=== PATIENT | female | born 1945 | race Caucasian/White ===

== ENCOUNTER 2017-04-02 01:58 | Inpatient (IN) | payer MEDICARE, OTHER ==
[~2017-04-02] VITALS: Ht 162.6 cm; Wt 74.8 kg
[2017-04-02] MEDS ORDERED: SECONDARY IV SET 1 EA INFUS.SET MC ONE (02:15)
[2017-04-02] MEDS ORDERED: IV NS 0.9% 2,000 ML ONE (02:15)
[2017-04-02] MEDS ORDERED: IV SET PRIMARY 1 EA INFUS.SET MC ONE (02:15)
--- NOTE | 2017-04-02 02:16 | NUR ---
PT BIBA#60 PT STATES SHE HAS BEEN HVAING DIARRHEA AND SLIPPED IN HER OWN DIARRHEA AND IS C/O LEFT ELBOW PAIN, PT DENIES LOC. PT AOX4 RR EVEN AND UNLABORED. NO SOB NOTED. NAD NOTED. NO NVD AT THIS TIME. PT GOWNED AND PLACED ON MONITOR. WAITING FOR MD HYATT. NOTED PT WITH LEFT ARM ROM, C/O LEFT WRIST PAIN.
[2017-04-02] MEDS ORDERED: IV NS 0.9% 1,000 ML BAG IV ONE ×2 (02:30)
[2017-04-02 02:47] LABS: EOSINOPHILS % (AUTO) 0.2 % (0.0-6.0); HEMATOCRIT 36 % (33-45); HEMOGLOBIN 11.6 g/dL (11.5-14.8); LYMPHOCYTES # (AUTO) 0.3 /CMM (0.8-4.8); LYMPHOCYTES % (AUTO) 3.5 % (20.0-44.0); MEAN CORPUSCULAR HEMOGLOBIN 27 PG (26.0-33.0); MEAN CORPUSCULAR HGB CONC 32 g/dl (31.0-36.0); MEAN CORPUSCULAR VOLUME 84 fL (82-100); MONOCYTES # (AUTO) 0.4 /CMM (0.1-1.30); MONOCYTES % (AUTO) 4.5 % (2.0-12.0); NEUTROPHILS # (AUTO) 7.6 /CMM (1.8-8.9); NEUTROPHILS % (AUTO) 91.8 % (43.0-81.0); PLATELET COUNT (AUTO) 296 /CMM (150-450); RDW COEFFICIENT OF VARIATION 15.8 (11.5-15.0); RED BLOOD CELL COUNT(AUTO) 4.29 MIL/uL (4.0-5.2); WHITE BLOOD COUNT (AUTO) 8.2 K/uL (4.3-11.0)
[2017-04-02 03:02] LABS: ALBUMIN 2.8 g/dL (3.4-5.0); BILIRUBIN,DIRECT 0.1 mg/dL (0.0-0.2); BILIRUBIN,TOTAL 0.4 mg/dL (0.2-1.0); CALCIUM, SERUM 9.2 mg/dL (8.5-10.1); CREATININE 1.3 mg/dL (0.6-1.3); POTASSIUM 3.7 mmol/L (3.5-5.1); TOTAL PROTEIN, SERUM 6.8 g/dL (6.4-8.2)
--- NOTE | 2017-04-02 03:05 | NUR ---
URINE COLLECTED. CALLED LAB FOR COMPUTER CUSTOMER SUPPORT SPECIALIST. Addendum: 04/02/17 at 0311 by SEBASTIAN URINE COLLECTED VIA IN AND OUT CATH PER PT REQUEST, IMMACULATE SALES RECRUITING COORDINATOR AT BEDSIDE.
--- NOTE | 2017-04-02 03:07 | NUR ---
XRAY AT BEDSIDE
[2017-04-02 03:59] LABS: BILIRUBIN,URINE NEGATIVE (NEGATIVE); BLOOD, URINE NEGATIVE Ery/uL (NEGATIVE); COLOR,URINE YELLOW (YELLOW); KETONES,URINE NEGATIVE (NEGATIVE); LEUKOCYTE ESTERASE ,URINE NEGATIVE (NEGATIVE); NITRITE, URINE NEGATIVE (NEGATIVE); PROTEIN,URINE TRACE mg/dl (NEGATIVE); UGLUCOSE 3+ mg/dL (NEGATIVE); UROBILINOGEN,URINE 0.2 EU/dL (0.2)
[2017-04-02] MEDS ORDERED: ALPRAZOLAM 0.5 MG TABLET PO ONE (04:00)
[2017-04-02] MEDS ORDERED: ALPRAZOLAM 0.5 MG TABLET ONE (04:00)
[2017-04-02 04:14] LABS: APPEARANCE,URINE HAZY (CLEAR)
[2017-04-02 04:18] LABS: ADD URINE CULTURE NO; BACTERIA,URINE None seen /HPF (None Seen); SQUAMOUS EPITHELIAL CELL,UR Rare /HPF (None Seen); WBC,URINE 20-30 /HPF (0-3)
--- NOTE | 2017-04-02 04:30 | NUR ---
DR. RUIZ AT BEDSIDE SPEAKING TO PT REGARDING RESULTS/ POC
--- NOTE | 2017-04-02 05:29 | NUR ---
PT ASSIGNED TO MS BED 313-1, DR. RUIZ SPEAKING TO DR. DISLA REGARDING ADMISSION
--- NOTE | 2017-04-02 05:30 | NUR ---
PT CANNOT RECALL MEDICATION/ DOESNT NOT HAVE LIST OF MEDICATION
--- NOTE | 2017-04-02 05:38 | NUR ---
REPORT GIVEN TO MS CARLA HARRISON FOR SARAH
[2017-04-02] MEDS ORDERED: ONDANSETRON HCL/PF 4 MG/2 ML VIAL IVP PRN (06:00)
[2017-04-02] MEDS ORDERED: Z GUARD REMEDY 2 OZ OINT TP PRN (06:00)
[2017-04-02] MEDS ORDERED: MAG HYDROX/AL HYDROX/SIMETH 30 ML UDC PO PRN (06:00)
[2017-04-02] MEDS ORDERED: MAGNESIUM HYDROXIDE 30 ML UDC PO PRN (06:00)
[2017-04-02] MEDS ORDERED: ACETAMINOPHEN 325 MG TABLET PO PRN (06:00)
[2017-04-02] MEDS ORDERED: ZOLPIDEM TARTRATE 5 MG TABLET PO PRN (06:00)
[2017-04-02] MEDS ORDERED: DEXTROSE 50%-WATER 50 ML DISP.SYRIN IV PRN (06:00)
--- NOTE | 2017-04-02 06:00 | NUR ---
ms/rn notes Received patient from ER via relvi accompanied by rn and hospital staff. alert x2. able to verbalize needs. patient had diarrhea and s/p fall w/ dx of dehydration. xray result on left elbow, left wrist, left hip w/o fx.but noted left elbow scab. and multiple discoloration.in lower/upper extremity. skin intact. with redness on inner buttocks. no home medication reconciled awaiting for room mate to bring home medications. w/ hx of htn and dm. will endorse to am rn for wendy.
--- NOTE | 2017-04-02 06:06 | NUR ---
PT TRASNFERED TO MS BED 313-2 VIA WILIAM
[2017-04-02] MEDS: BLOOD SUGAR DIAGNOSTIC 1 EACH STRIP IN SCH ×4 (07:02→21:31)
[2017-04-02 08:00] VITALS: BP_SYST 134; BP_SYST 154; BP_DIAS 69; BP_DIAS 91
--- NOTE | 2017-04-02 08:00 | NUR ---
MS RN OPENING NOTES RECEIVED REPORT WITH PATIENT RESTING IN BED. PATIENT IS A/OX2. NO S/S OF DISTRESS NOTED. NO SOB NOTED. IV ON RIGHT HAND IS PATENT AND INTACT. CALL LIGHT IS WITHIN REACH. BED IS IN LOW LOCKED POSITION. WILL CONTINUE TO MONITOR THROUGHOUT SHIFT.
[2017-04-02] MEDS: PANTOPRAZOLE 40 MG VIAL IV SCH (09:11)
[2017-04-02] MEDS ORDERED: DIPH1TAB PO (11:36)
[2017-04-02] MEDS ORDERED: HYDR25TA4 PO (11:36)
[2017-04-02] MEDS ORDERED: ARIP2TAB11 PO (11:36)
[2017-04-02] MEDS ORDERED: ATOR40TA PO (11:36)
[2017-04-02] MEDS ORDERED: LEVO75TA7 PO (11:36)
[2017-04-02] MEDS ORDERED: ALBU8.5H2 INH (11:36)
[2017-04-02] MEDS ORDERED: ALPR0.25 PO (11:36)
[2017-04-02] MEDS ORDERED: TEMA15CA PO (11:36)
[2017-04-02] MEDS ORDERED: CODE118S2 PO (11:36)
[2017-04-02] MEDS ORDERED: BUTA-247 PO (11:36)
--- NOTE | 2017-04-02 12:00 | NUR ---
MS RN NOTES PATIENT STATED THAT HER NEIGHBOR, SADE JULIEN HAS ACCESS TO HER APARTMENT. PATIENT NOTIFIED ME OF NUMBER . NEIGHBOR WILL BRING ALL MEDICATIONS.
[2017-04-02] MEDS: INSULIN REGULAR, HUMAN 100 UNIT/ML 3 ML VIAL SQ PRN (13:10)
--- NOTE | 2017-04-02 14:00 | NUR ---
MS RN NOTES MEDICATIONS HAVE BEEN RECONCILED. MD MADE AWARE. WAITING FOR REVIEW.
[2017-04-02] MEDS ORDERED: ISOS30TA6 PO (15:09)
[2017-04-02] MEDS ORDERED: BUDE3CAP8 PO (15:09)
[2017-04-02] MEDS ORDERED: CYCL-343 PO (15:09)
[2017-04-02] MEDS ORDERED: MESA1.2T PO (15:09)
[2017-04-02] MEDS ORDERED: GABA-536 PO (15:09)
[2017-04-02] MEDS ORDERED: MONT10TA22 PO (15:09)
[2017-04-02] MEDS ORDERED: DONE5TAB34 PO (15:09)
[2017-04-02] MEDS ORDERED: INSU3INS6 SQ (15:09)
[2017-04-02] MEDS ORDERED: VENL75TA4 PO (15:09)
[2017-04-02] MEDS ORDERED: AMLO10TA2 PO (15:09)
[2017-04-02] MEDS ORDERED: INSU100I14 SQ (15:09)
[2017-04-02] MEDS ORDERED: SERT100T12 PO (15:09)
[2017-04-02] MEDS ORDERED: MEMA10TA PO (15:09)
[2017-04-02] MEDS: ALPRAZOLAM 0.25 MG TABLET PO PRN (15:19)
[2017-04-02 16:00] VITALS: BP 130/79
[2017-04-02] MEDS ORDERED: IV SET PRIMARY PUMP SET 1 EA INFUS.SET MC ONE (18:51)
[2017-04-02] MEDS ORDERED: Z GUARD REMEDY 4 OZ OINT TP PRN (19:00)
[2017-04-02] MEDS: IV NS 0.9% 1,000 ML IV PRN (19:02)
--- NOTE | 2017-04-02 19:28 | NUR ---
MS RN NOTES PATIENT IN BED RESTING. PATIENT IS A/OX2. IV IS PATENT AND INTACT. PATIENT DENIES PAIN AT THIS TIME. NO ACUTE DISTRESS NOTED. NO SOB NOTED. BED IS IN LOW LOCKED POSITION. CALL LIGHT WITHIN REACH. WILL ENDORSE CARE TO PM SHIFT.
--- NOTE | 2017-04-02 19:30 | NUR ---
MS RN NOTE RECEIVED PATIENT FROM DAY SHIFT, PATIENT IS ALERT AND ORIENTEDX3, DENIES RESPIRATORY DISTRESS AND PAIN AT THIS TIME. IV ON RIGHT HAND IS PATENT AND INTACT, NS IS RUNNING. SRX2, BED IN LOW POSITION, CALL LIGHT WITHIN REACH, WILL CONTINUE TO MONITOR PATIENT.
[2017-04-02 20:00] VITALS: BP 146/79
[2017-04-02] MEDS ORDERED: CODEINE/PROMETHAZINE HCL 5 ML UDC PO PRN (20:00)
[2017-04-02] MEDS ORDERED: DIPHENOXYLATE HCL/ATROP SULF 1 UDTAB TABLET PO PRN (20:00)
[2017-04-02] MEDS ORDERED: ATORVASTATIN 40 MG TABLET ONE (20:24)
[2017-04-02] MEDS ORDERED: MONTELUKAST SODIUM (10MG) 10 MG TABLET ONE (20:24)
[2017-04-02] MEDS: BUTALB/APAP/CAFFEINE 1 EACH TABLET PO SCH (20:57)
[2017-04-02] MEDS ORDERED: TEMAZEPAM 15 MG CAPSULE ONE (21:09)
[2017-04-02] MEDS: *INSULIN REGULAR(HUMULIN R)HUM 100 UNIT/ML VIAL SQ PRN (21:32)
[2017-04-02] MEDS: MONTELUKAST SODIUM (10MG) 10 MG TABLET PO SCH (21:32)
[2017-04-02] MEDS: ATORVASTATIN 40 MG TABLET PO SCH (21:32)
[2017-04-02] MEDS: TEMAZEPAM 15 MG CAPSULE PO SCH (21:32)
[2017-04-03] MEDS: BUTALB/APAP/CAFFEINE 1 EACH TABLET PO SCH ×2 (01:00→05:00)
[2017-04-03] MEDS: ALPRAZOLAM 0.25 MG TABLET PO PRN ×3 (01:11→17:41)
[2017-04-03] MEDS: HYDROCODONE/APAP 5/325MG 1 EACH TABLET PO PRN ×2 (04:34→23:09)
[2017-04-03] MEDS: IV NS 0.9% 1,000 ML IV PRN ×2 (04:35→21:50)
--- NOTE | 2017-04-03 04:37 | NUR ---
MS RN NOTE PATIENT COMPLAINS OF BACK PAIN 05/22, NORCO 5-325MG PO GIVEN. WILL MONITOR EFFECTIVENESS.
--- NOTE | 2017-04-03 05:17 | NUR ---
MS RN NOTE NON-ADMINISTERED FIORICETX3 TIMES PO SCHEDULED SINCE IT IS NOT AVAILABLE FORM IN [facility]. WILL ENDORSE TO DAY SHIFT TO F/U WITH PHARMACY. PATIENT DID NOT COMPLAIN OF HEADACHE.
[2017-04-03] MEDS: BLOOD SUGAR DIAGNOSTIC 1 EACH STRIP IN SCH ×4 (06:04→21:53)
[2017-04-03] MEDS: INSULIN REGULAR, HUMAN 100 UNIT/ML 3 ML VIAL SQ PRN ×3 (06:04→17:41)
--- NOTE | 2017-04-03 06:46 | NUR ---
MS RN NOTE PATIENT IS RESTING IN BED COMFORTABLY, DENIES RESPIRATORY DISTRESS AND PAIN AT THIS TIME. IV ON RIGHT HAND IS PATENT AND INTACT, FLUID IS RUNNING. WILL ENDORSE TO DAY SHIFT NURSE FOR SARAH.
[2017-04-03 07:08] LABS: BASOPHILS % (AUTO) 0.2 % (0.0-2.0); EOSINOPHILS # (AUTO) 0.1 /CMM (0.0-0.7); EOSINOPHILS % (AUTO) 1.8 % (0.0-6.0); HEMATOCRIT 31 % (33-45); LYMPHOCYTES # (AUTO) 1.5 /CMM (0.8-4.8); LYMPHOCYTES % (AUTO) 27.4 % (20.0-44.0); MEAN CORPUSCULAR HEMOGLOBIN 27 PG (26.0-33.0); MEAN CORPUSCULAR HGB CONC 32 g/dl (31.0-36.0); MEAN CORPUSCULAR VOLUME 84 fL (82-100); MONOCYTES # (AUTO) 0.7 /CMM (0.1-1.30); MONOCYTES % (AUTO) 13.7 % (2.0-12.0); NEUTROPHILS # (AUTO) 3.1 /CMM (1.8-8.9); NEUTROPHILS % (AUTO) 56.9 % (43.0-81.0); PLATELET COUNT (AUTO) 229 /CMM (150-450); RDW COEFFICIENT OF VARIATION 15.6 (11.5-15.0); RED BLOOD CELL COUNT(AUTO) 3.68 MIL/uL (4.0-5.2); WHITE BLOOD COUNT (AUTO) 5.4 K/uL (4.3-11.0)
[2017-04-03 07:29] LABS: ALBUMIN 2.4 g/dL (3.4-5.0); BILIRUBIN,TOTAL 0.3 mg/dL (0.2-1.0); CALCIUM, SERUM 8.2 mg/dL (8.5-10.1); CREATININE 0.7 mg/dL (0.6-1.3); PHOSPHORUS 2.2 mg/dL (2.5-4.9); TOTAL PROTEIN, SERUM 5.7 g/dL (6.4-8.2)
[2017-04-03 07:33] LABS: THYROID STIMULATING HORMONE 1.667 uIU/mL (0.358-3.74)
--- NOTE | 2017-04-03 07:50 | NUR ---
MS RN OPENING NOTE PATIENT IS ALERT AND ORIENTED x4. NO PAIN AT THIS TIME. NO SOB OR DISTRESS NOTED. CALL LIGHT WITHIN REACH. SAFETY MEASURES IMPLEMENTED. ABLE TO COMMUNICATE NEEDS. IV INTACT AND PATENT NO REDNESS OR SWELLING NOTED. WILL CONTINUE TO MONITOR
[2017-04-03 07:52] LABS: MAGNESIUM 1.2 mg/dL (1.8-2.4); POTASSIUM 2.8 mmol/L (3.5-5.1)
--- NOTE | 2017-04-03 07:53 | NUR ---
MS RN NOTE RECEIVED CALL FROM LAB. PATIENT HAS TWO CRITICAL LABS, POTASSIUM-2.8 AND MAGNESIUM-1.2 . MADE PHARMACY AWARE. WILL MAKE MD AWARE WELL.
[2017-04-03 08:00] VITALS: BP 136/74
[2017-04-03] MEDS ORDERED: SECONDARY IV SET 1 EA INFUS.SET MC ONE (09:14)
[2017-04-03] MEDS: PANTOPRAZOLE 40 MG VIAL IV SCH (09:23)
[2017-04-03] MEDS: POTASSIUM CHLORIDE 20 MEQ TAB.PRT.SR PO SCH ×3 (09:23→12:09)
[2017-04-03] MEDS: DONEPEZIL 5 MG TABLET PO SCH (09:24)
[2017-04-03] MEDS: VENLAFAXINE 37.5 MG TABLET PO SCH (09:24)
[2017-04-03] MEDS: LEVOTHYROXINE SODIUM 75 MCG TABLET PO SCH (09:24)
[2017-04-03] MEDS: GABAPENTIN 400 MG CAPSULE PO SCH ×3 (09:24→17:40)
[2017-04-03] MEDS: AMLODIPINE BESYLATE 10 MG TABLET PO SCH (09:25)
[2017-04-03] MEDS: ARIPIPRAZOLE 2 MG TABLET PO SCH (09:30)
[2017-04-03] MEDS: BUDESONIDE 3 MG CAP.SR.24H PO SCH (09:30)
[2017-04-03] MEDS: Magnesium 1GM/D5W 100ML PREMIX 100 ML IV SCH ×4 (09:30→14:25)
[2017-04-03] MEDS ORDERED: BUTALB/APAP/CAFFEINE 1 EACH TABLET PO PRN (09:39)
[2017-04-03] MEDS ORDERED: POTASSIUM CHLORIDE 20 MEQ TAB.PRT.SR PO ONE ×2 (10:00→14:00)
[2017-04-03] MEDS ORDERED: POTASSIUM CL. PREMIX PERIPHER. 50 ML IV SCH (10:00)
[2017-04-03] MEDS ORDERED: Magnesium 1GM/D5W 100ML PREMIX 100 ML IV SCH (10:00)
--- NOTE | 2017-04-03 10:02 | NUR ---
MS RN NOTE RECEIVED CALL FROM PHARMACY FOR ORDERS FROM MD. CLARIFIED MD ORDERS WITH DR. FRANK, PATIENT WILL RECEIVE ANOTHER POTASSIUM PILL PO AND 4 MAGNESIUM BAGS. MADE PATIENT AWARE AND MADE CHARGE NURSE AWARE
[2017-04-03] MEDS ORDERED: ALBUTEROL FS 2.5 MG/3 ML VIAL.NEB NEB PRN (13:30)
--- NOTE | 2017-04-03 13:52 | NUR ---
MS RN NOTE GAVE REPORT TO LÓPEZ IN REGARDS TO PATIENT. PATIENT IS ALERT AND ORIENTED x4. NO PAIN AT THIS TIME. NO SOB OR DISTRESS NOTED. CALL LIGHT WITHIN REACH AT ALL TINES. SAFETY MEASURES IMPLEMENTED.
--- NOTE | 2017-04-03 13:55 | NUR ---
RECEIVED PT IN STABLE CONDITION FROM AM NURSE, NO SOB OR DISTRESS NOTED, NO PAIN OR DISCOMFORT, WILL MONITOR.
[2017-04-03 16:00] VITALS: BP 120/71
[2017-04-03] MEDS ORDERED: K PHOS NEUTRAL 250 MG TABLET PO ONE (18:00)
--- NOTE | 2017-04-03 19:17 | NUR ---
RN CLOSING NOTES ALL NEEDS PROVIDED, ATTENDED AND ANTICIPATED. KEPT PATIENT CLEAN AND COMFORTABLE IN BED, CALL LIGHT WITHIN PATIENT REACH, WILL CONTINUE TO MONITOR ACCORDINGLY. ENDORSED TO NEXT SHIFT RN TO CONTINUE CARE.
--- NOTE | 2017-04-03 19:23 | NUR ---
RN NOTES BLOOD GLUCOSE 150 AT 1730. GIVEN 2 UNITS
--- NOTE | 2017-04-03 19:35 | NUR ---
MS RN NOTE RECEIVED PATIENT FROM DAY SHIFT, PATIENT IS ALERT AND ORIENTEDX3, DENIES RESPIRATORY DISTRESS OR PAIN AT THIS TIME, LOOKS COMFORTABLE. IV ON RIGHT HAND IS PATENT AND INTACT, NS IS RUNNING. SRX2, BED IN LOW POSITION, CALL LIGHT WITHIN REACH, WILL CONTINUE TO MONITOR PATIENT.
[2017-04-03 20:35] VITALS: BP 143/66
[2017-04-03] MEDS: MONTELUKAST SODIUM (10MG) 10 MG TABLET PO SCH (21:49)
[2017-04-03] MEDS: TEMAZEPAM 15 MG CAPSULE PO SCH (21:49)
[2017-04-03] MEDS: ATORVASTATIN 40 MG TABLET PO SCH (21:50)
[2017-04-03] MEDS: *INSULIN REGULAR(HUMULIN R)HUM 100 UNIT/ML VIAL SQ PRN (21:57)
[2017-04-04] MEDS: BLOOD SUGAR DIAGNOSTIC 1 EACH STRIP IN SCH ×4 (05:49→21:39)
[2017-04-04] MEDS: INSULIN REGULAR, HUMAN 100 UNIT/ML 3 ML VIAL SQ PRN ×3 (05:50→17:25)
--- NOTE | 2017-04-04 06:50 | NUR ---
MS RN NOTE PATIENT IS RESTING IN BED COMFORTABLY, NO ACUTE DISTRESS PRESENT DURING THE GRANULIZING MACHINE OPERATOR. ALL DUE MEDS GIVEN, MORNING CARE RENDERED. IV ON RIGHT HAND IS PATENT AND INTACT, FLUID IS RUNNING. WILL ENDORSE TO DAY SHIFT FOR SARAH.
[2017-04-04 06:55] LABS: BASOPHILS % (AUTO) 0.4 % (0.0-2.0); EOSINOPHILS # (AUTO) 0.1 /CMM (0.0-0.7); EOSINOPHILS % (AUTO) 1.7 % (0.0-6.0); HEMATOCRIT 32 % (33-45); HEMOGLOBIN 10.4 g/dL (11.5-14.8); LYMPHOCYTES # (AUTO) 1.8 /CMM (0.8-4.8); LYMPHOCYTES % (AUTO) 28.5 % (20.0-44.0); MEAN CORPUSCULAR HEMOGLOBIN 27 PG (26.0-33.0); MEAN CORPUSCULAR HGB CONC 33 g/dl (31.0-36.0); MEAN CORPUSCULAR VOLUME 84 fL (82-100); MONOCYTES # (AUTO) 0.8 /CMM (0.1-1.30); MONOCYTES % (AUTO) 13.6 % (2.0-12.0); NEUTROPHILS # (AUTO) 3.5 /CMM (1.8-8.9); NEUTROPHILS % (AUTO) 55.8 % (43.0-81.0); PLATELET COUNT (AUTO) 239 /CMM (150-450); RDW COEFFICIENT OF VARIATION 16.1 (11.5-15.0); RED BLOOD CELL COUNT(AUTO) 3.79 MIL/uL (4.0-5.2); WHITE BLOOD COUNT (AUTO) 6.2 K/uL (4.3-11.0)
[2017-04-04 07:14] LABS: CALCIUM, SERUM 8.3 mg/dL (8.5-10.1); CREATININE 0.7 mg/dL (0.6-1.3); MAGNESIUM 1.9 mg/dL (1.8-2.4); PHOSPHORUS 2.6 mg/dL (2.5-4.9); POTASSIUM 3.8 mmol/L (3.5-5.1)
--- NOTE | 2017-04-04 07:38 | NUR ---
RN MS OPENING NOTES RECEIVED PATIENT IN BED, AWAKE, HEAD OF BED ELEVATED. PATIENT ALERT AND ORIENTED X 4.NO SOB OR DISTRESS NOTED, IV IS INTACT AND PATENT. PATIENT'S CALL LIGHT IS WITHIN PATIENT REACH. WILL CONTINUE TO MONITOR ACCORDINGLY.
[2017-04-04 08:00] VITALS: BP 131/77
[2017-04-04] MEDS: PANTOPRAZOLE 40 MG VIAL IV SCH (08:39)
[2017-04-04] MEDS: ARIPIPRAZOLE 2 MG TABLET PO SCH (08:39)
[2017-04-04] MEDS: DONEPEZIL 5 MG TABLET PO SCH (08:40)
[2017-04-04] MEDS: GABAPENTIN 400 MG CAPSULE PO SCH ×3 (08:40→17:25)
[2017-04-04] MEDS: VENLAFAXINE 37.5 MG TABLET PO SCH (08:41)
[2017-04-04] MEDS: BUDESONIDE 3 MG CAP.SR.24H PO SCH (08:41)
[2017-04-04] MEDS: AMLODIPINE BESYLATE 10 MG TABLET PO SCH (08:41)
[2017-04-04] MEDS: LEVOTHYROXINE SODIUM 75 MCG TABLET PO SCH (08:41)
[2017-04-04] MEDS: ALPRAZOLAM 0.25 MG TABLET PO PRN (09:52)
--- NOTE | 2017-04-04 10:00 | NUR ---
RN NOTES PATIENT REQUESTED XANAX FOR ANXIETY.
--- NOTE | 2017-04-04 11:18 | NUR ---
Social service consult requested by Med/Surg NGHIA Cote for emotional support. Per H&P report by Dr. Rizzo, patient is a 71-year old female with a PMHx of HTN, hyperlipidemia, GERD, irritable bowel syndrome, rheumatoid arthritis, fibromyalgia, diabetes, and anemia. Patient reports feeling very overwhelmed and emotional. Patient was [facility] to [facility] for dehydration, falling, and gastroenteritis. SW met with patient at bedside. Patient was alert and oriented x4. Her appearance was disheveled. She presented with an expansive mood and her affect was labile. She denied any substance abuse. She reported a history of depression and anxiety. Patient report feeling overwhelmed with her upcoming situation. Patient reported that she forgot that she would be going to a SNF (i.e. [facility]). However, she stated now remembering that it was discussed. Patient requested information related to the SNF (e.g. address) to help calm her down. Patient also stated she had anxiety because she didn't know what possessions she had with her in the hospital. Patient requested to be updated on the possessions she had. She reported that she did not have any pants because they were cut off. She requested pants. Patient reported that the requested assistance would ease her anxiety. SW agreed to provide patient information related to SNF and explore if pants are available for her. Patient was agreeable with discharge plan to [facility] [[id number]; [place], [place] [id number]].
--- NOTE | 2017-04-04 11:30 | NUR ---
RN NOTES PATIENT'S BLOOD SUGAR 216 AT 1130, 4 UNITS OF REGULAR INSULIN GIVEN
--- NOTE | 2017-04-04 15:39 | NUR ---
RN NOTES PATIENT COMPLAINING OF BACK PAIN. GIVEN TYLENOL.
[2017-04-04 16:00] VITALS: BP 123/65
--- NOTE | 2017-04-04 17:36 | NUR ---
RN NOTES PATIENT IS WATCHING TV IN STABLE CONDITION
--- NOTE | 2017-04-04 19:05 | NUR ---
MS RN OPENING NOTES: RECEIVED PT AWAKE, A/OX3, LAYING IN BED. NO SIGNS OR SYMPTOMS OF DISTRESS AT THIS TIME. PT HAS IV ON R HAND #206 AND IS PATENT AND INTACT. FLUIDS ARE INFUSING AT IV 0.9% NS 1,000ML AT 75ML/HR. CALL LIGHT WITHIN PT'S REACH. BED KEPT IN LOCKED, LOWEST POSITION, AND SIDE RAILS X 2 UP. PT KEPT CLEAN, DRY, AND COMFORTABLE. WILL CONTINUE TO MONITOR PT.
[2017-04-04 20:00] VITALS: BP 125/68
--- NOTE | 2017-04-04 20:19 | NUR ---
MS RN NOTES: PT REPORTED 2 EPISODES OF DIARRHEA FOR TODAY. PT REQUESTED LOMOTIL PO. WILL CONTINUE TO MONITOR PT FOR DIARRHEA.
[2017-04-04] MEDS: ATORVASTATIN 40 MG TABLET PO SCH (21:20)
[2017-04-04] MEDS: MONTELUKAST SODIUM (10MG) 10 MG TABLET PO SCH (21:20)
[2017-04-04] MEDS: TEMAZEPAM 15 MG CAPSULE PO SCH (21:20)
--- NOTE | 2017-04-04 21:22 | NUR ---
MS RN NOTES: BLOOD SUGAR WAS 184. PT RECEIVED 3 UNITS OF REGULAR INSULIN. WILL CONTINUE TO MONITOR PT.
[2017-04-04] MEDS: *INSULIN REGULAR(HUMULIN R)HUM 100 UNIT/ML VIAL SQ PRN (21:26)
[2017-04-04] MEDS: IV NS 0.9% 1,000 ML IV PRN (21:34)
[2017-04-05] MEDS: BLOOD SUGAR DIAGNOSTIC 1 EACH STRIP IN SCH ×2 (06:24→11:59)
--- NOTE | 2017-04-05 06:25 | NUR ---
MS RN NOTES: BLOOD SUGAR WAS 160. PT RECEIVED 2 UNITS OF REGULAR INSULIN. WILL CONTINUE TO MONITOR PT.
[2017-04-05] MEDS: LEVOTHYROXINE SODIUM 75 MCG TABLET PO SCH ×2 (06:30→08:25)
[2017-04-05] MEDS: INSULIN REGULAR, HUMAN 100 UNIT/ML 3 ML VIAL SQ PRN ×2 (06:33→12:01)
--- NOTE | 2017-04-05 07:15 | NUR ---
MS RN NOTES: ALL NEEDS WERE ATTENDED FOR. PT IS AWAKE LAYING DOWN IN BED AND IS ASLEEP IN BED. PT IS A/O X4. PT KEPT CLEAN, DRY, AND COMFORTABLE. CALL LIGHT WITHIN PT'S REACH. BED KEPT IN LOCKED, LOWEST POSITION, AND SIDE RAILS X 2 UP. PT HAS IV ON R HAND #20G AND IS PATENT AND INTACT. FLUIDS ARE INFUSING AT NS 0.9% AT 75ML/HR. ENDORSED TO AM NURSE FOR CONTINUITY OF CARE.
[2017-04-05 08:00] VITALS: BP 138/78
[2017-04-05 08:14] VITALS: BP 138/78
[2017-04-05] MEDS: PANTOPRAZOLE 40 MG VIAL IV SCH (08:24)
[2017-04-05 08:25] VITALS: BP 138/78
[2017-04-05] MEDS: AMLODIPINE BESYLATE 10 MG TABLET PO SCH (08:25)
[2017-04-05] MEDS: GABAPENTIN 400 MG CAPSULE PO SCH ×2 (08:25→12:01)
[2017-04-05] MEDS: DONEPEZIL 5 MG TABLET PO SCH (08:25)
[2017-04-05] MEDS: VENLAFAXINE 37.5 MG TABLET PO SCH (08:25)
[2017-04-05] MEDS: ARIPIPRAZOLE 2 MG TABLET PO SCH (08:28)
[2017-04-05] MEDS: BUDESONIDE 3 MG CAP.SR.24H PO SCH (08:28)
--- NOTE | 2017-04-05 08:40 | NUR ---
RN Notes On bed awake, alert and oriented. Not in any form of distress. Denies headache or dizziness. On RA saturating at 97% with no SOB. With occasional cough. Both lungs clear to auscultate. Assisted to the commode tolerating well. resting fairly.
[2017-04-05] MEDS: ALPRAZOLAM 0.25 MG TABLET PO PRN (10:29)
--- NOTE | 2017-04-05 14:00 | NUR ---
RN Notes Discharge instruction given on home meds and follow up with primary care physician verbalized understanding.discharge paper properly signed. Belongings were accounted with patient and claimed no item is missing. Final body check done with picture documentation. No break in the skin noted. Redness on under breast folds resolved. Sacral excoriation healed.
--- NOTE | 2017-04-05 14:10 | NUR ---
RN Notes Left hospital per selma via [facility]. Iv access were removed. home medications handed to patient. Left hospital in stable condition. report given to nurse Escalante of [facility].
== END 2017-04-05 14:00 | DRG 392 ==
LOC: EDBD 01:59 → ER 01:59 → MED 05:43
PROVIDERS: ADMIT Internal Medicine; ATTEND Internal Medicine
DX: A08.4 Viral intestinal infection, unspecified (principal); E44.0 Moderate protein-calorie malnutrition; F13.20 Sedative, hypnotic or anxiolytic dependence, uncomplicated; I10 Essential (primary) hypertension; E78.5 Hyperlipidemia, unspecified; E11.9 Type 2 diabetes mellitus without complications; E86.0 Dehydration; M79.7 Fibromyalgia; M06.9 Rheumatoid arthritis, unspecified; K21.9 Gastro-esophageal reflux disease without esophagitis; J42 Unspecified chronic bronchitis; D63.8 Anemia in other chronic diseases classified elsewhere; W01.0XXA Fall on same level from slipping, tripping and stumbling without subsequent striking against object, initial encounter; Y92.009 Unspecified place in unspecified non-institutional (private) residence as the place of occurrence of the external cause; Z79.4 Long term (current) use of insulin; F32.9 Major depressive disorder, single episode, unspecified; Z68.28 Body mass index [BMI] 28.0-28.9, adult; K52.839 Microscopic colitis, unspecified; I70.90 Unspecified atherosclerosis
CPT/HCPCS: 36415; 71010-TC; 73080-TC; 73110; 73510-TC; 80048-TC; 80053-TC; 80061-TC; 80076-TC; 81000-TC; 82962-TC; 83735-TC; 84100-TC; 84443-TC; 84484-TC; 85025-TC; 87081-TC; 97001-TC; 97116-TC; 97530-TC; A4606; C9113; J1815; J3475; J7030; Z7610

== ENCOUNTER 2018-01-19 17:11 | Inpatient (IN) | payer MEDICARE, OTHER ==
[~2018-01-19] VITALS: Ht 172.7 cm; Wt 74.8 kg
[~2018-01-19 17:11] MED LIST: ALBU8.5H8 INH; ALPR0.25 PO; AMLO10TA2 PO; ARIP2TAB11 PO; ATOR40TA PO; BUDE3CAP8 PO; BUTA-247 PO; CODE118S2 PO; CYCL10TA9 PO; DIPH1TAB PO; DONE5TAB34 PO; GABA-536 PO; HYDR25TA4 PO; INSU100I14 SQ; INSU3INS6 SQ; ISOS30TA6 PO; LEVO75TA7 PO; MEMA10TA PO; MESA1.2T PO; MONT10TA22 PO; SERT100T12 PO; TEMA15CA PO; VENL75TA4 PO
--- NOTE | 2018-01-19 17:40 | NUR ---
BIB RA C/O ALOC AND POSSIBLE OVERDOSE ON MEDICATION. SEEN BY MEDICAL TECHNOLOGIST FOR EVAL. PT AAXO2. VSS. UNABLE TO GIVE INFO. SAFETY AND COMFORT MEASURES PROVIDED. WILL MONITOR.
[2018-01-19 18:00] LABS: BASOPHILS # (AUTO) 0.1 /CMM (0.0-0.2); BASOPHILS % (AUTO) 1.2 % (0.0-2.0); EOSINOPHILS # (AUTO) 0.2 /CMM (0.0-0.7); EOSINOPHILS % (AUTO) 1.7 % (0.0-6.0); HEMATOCRIT 43 % (33-45); HEMOGLOBIN 15.1 g/dL (11.5-14.8); LYMPHOCYTES # (AUTO) 2.4 /CMM (0.8-4.8); LYMPHOCYTES % (AUTO) 20.1 % (20.0-44.0); MEAN CORPUSCULAR HEMOGLOBIN 31 PG (26.0-33.0); MEAN CORPUSCULAR HGB CONC 35 g/dl (31.0-36.0); MEAN CORPUSCULAR VOLUME 89 fL (82-100); MONOCYTES # (AUTO) 0.7 /CMM (0.1-1.30); MONOCYTES % (AUTO) 6.1 % (2.0-12.0); NEUTROPHILS # (AUTO) 8.6 /CMM (1.8-8.9); NEUTROPHILS % (AUTO) 70.9 % (43.0-81.0); PLATELET COUNT (AUTO) 236 /CMM (150-450); RDW COEFFICIENT OF VARIATION 14.9 (11.5-15.0); RED BLOOD CELL COUNT(AUTO) 4.89 MIL/uL (4.0-5.2)
[2018-01-19] MEDS ORDERED: OMEP20CA10 PO (18:12)
[2018-01-19] MEDS ORDERED: ERGO500040 PO (18:12)
[2018-01-19] MEDS ORDERED: TRAM50TA2 PO (18:12)
[2018-01-19] MEDS ORDERED: FERR325T23 PO (18:12)
[2018-01-19] MEDS ORDERED: GLYB5TAB7 PO (18:12)
[2018-01-19] MEDS ORDERED: BUPR-96 PO (18:12)
[2018-01-19] MEDS ORDERED: ONDA4TAB8 PO (18:12)
[2018-01-19] MEDS ORDERED: ASPI-1169 PO (18:12)
[2018-01-19] MEDS ORDERED: HYDR-552 PO (18:12)
[2018-01-19] MEDS ORDERED: METO25TA3 PO (18:12)
--- NOTE | 2018-01-19 18:20 | NUR ---
IV ACCESS STARTED. BLOOD DRAWN FOR LABS.
--- NOTE | 2018-01-19 18:30 | NUR ---
URINE SAMPLE OBTAINED, SENT.
[2018-01-19 18:37] LABS: ALANINE AMINOTRANSFERASE 22 U/L (12-78); ALBUMIN 3.4 g/dL (3.4-5.0); ALCOHOL, BLOOD < 3 mg/dL (0-0); ALKALINE PHOSPHATASE 109 U/L (46-116); ASPARTATE AMINOTRANSFERASE 24 U/L (15-37); BILIRUBIN,DIRECT 0.1 mg/dL (0.0-0.2); BILIRUBIN,TOTAL 0.3 mg/dL (0.2-1.0); CALCIUM, SERUM 9.9 mg/dL (8.5-10.1); CARBON DIOXIDE 25 mmol/L (21-32); CHLORIDE 100 mmol/L (98-107); CREATININE 1.1 mg/dL (0.6-1.3); POTASSIUM 3.5 mmol/L (3.5-5.1); SALICYLATE 3.2 mg/dL (2.8-20.0); SODIUM SERUM 136 mmol/L (136-145); TOTAL PROTEIN, SERUM 7.6 g/dL (6.4-8.2); UREA NITROGEN, BLOOD 17 mg/dL (7-18)
[2018-01-19 18:39] LABS: ACETAMINOPHEN < 2 ug/ml (10-30)
[2018-01-19 18:40] LABS: GLUCOSE 363 mg/dL (74-106)
[2018-01-19 19:44] LABS: APPEARANCE,URINE CLEAR (CLEAR); BILIRUBIN,URINE NEGATIVE (NEGATIVE); BLOOD, URINE NEGATIVE Ery/uL (NEGATIVE); COLOR,URINE YELLOW (YELLOW); KETONES,URINE NEGATIVE (NEGATIVE); LEUKOCYTE ESTERASE ,URINE NEGATIVE (NEGATIVE); NITRITE, URINE NEGATIVE (NEGATIVE); PROTEIN,URINE NEGATIVE (NEGATIVE); UGLUCOSE 3+ mg/dL (NEGATIVE); UROBILINOGEN,URINE 0.2 EU/dL (0.2)
[2018-01-19 20:32] LABS: BACTERIA,URINE Few /HPF (None Seen); RBC,URINE 0-2 /HPF (0-2); SQUAMOUS EPITHELIAL CELL,UR Few /HPF (None Seen); WBC,URINE 0-2 /HPF (0-3)
--- NOTE | 2018-01-19 21:44 | NUR ---
CALLED JERAMIE, NURSE ON EMERGENCY PHONE LIST FOR PT, NO ANSWER, LEFT MESSAGE ON VOICEMAIL
--- NOTE | 2018-01-19 21:52 | NUR ---
Idalia Myers; pts. caregiver [phone]
--- NOTE | 2018-01-20 00:22 | NUR ---
CALLED HALIMA FOR PSYCH EVAL. LEFT MESSAGE. [phone]
--- NOTE | 2018-01-20 00:35 | NUR ---
HEIKE BEST AT FOR EVAL.
--- NOTE | 2018-01-20 01:31 | NUR ---
REPORT GIVEN TO ZACH AGUIRRE FOR GPS 213.
[2018-01-20] MEDS ORDERED: MAG HYDROX/AL HYDROX/SIMETH 30 ML UDC PO PRN (02:00)
[2018-01-20] MEDS ORDERED: ACETAMINOPHEN 325 MG TABLET PO PRN (02:00)
[2018-01-20] MEDS ORDERED: MAGNESIUM HYDROXIDE 30 ML UDC PO PRN (02:00)
--- NOTE | 2018-01-20 03:26 | NUR ---
ADMITTED FROM [facility] BROUGHT IN BY EMS WITH HER CAREGIVER ON 5150 HOLD FOR DTS AND GD. CAME TO THE UNIT AROUND 0200. PATIENT WAS PLACED COMFORTABLY IN BED. PATIENT SHOWS NO S/S OF ANY PAIN OR DISCOMFORT. UPON FACE TO FACE, PATIENT WAS DISHEVELED, UNKEMPT, MESSY HAIR, STATED, " I AM DEPRESSED AND BIPOLAR, I HIT MY HAND BUT I DON'T THINK I TOOK MY PILLS, I DON'T REMEMBER." CAREGIVER TOLD GRADUATE ADVISOR THAT PATIENT TAKES EXTRA DOSES OF INSULIN AND FIORICET. PATIENT IS ALERT ORIENTED X1. BELONGINGS INVENTORIED AND CHECKED FOR CONTRABAND, VALUABLES PUT TO SAFE. PATIENT IS UNDER THE PSYCHIATRIC CARE OF DR. HOPKINS AND UNDER THE MEDICAL CARE OF DR. STOCK. SKIN ASSESSMENT NOT DONE, PATIENT ASLEEP. MED RECON FOLLOW IN THE MORNING. MRSA SCREEN DONE IN ER. BED LOCKED AND PLACED ON LOWEST POSITION. WILL CONTINUE TO MONITOR Q 15 MINS. TO MAINTAIN SAFETY. NO NEXT OF KIN GIVEN TO NOTIFY OF HER ADMISSION TO GPS UNIT, NEED FOLLOW-UP.
[2018-01-20 08:00] VITALS: BP 136/89
--- NOTE | 2018-01-20 13:00 | NUR ---
GPS/RN-NOTES ADMITTED 81 Y.O MALE PATIENT FROM [facility]. PATIENT ON 5150 [address] EMMANUEL COVERING FOR DR. HOPKINS TODAY SEEN THE PATIENT WITH ORDERS. PATIENT ALERT ORIENTED X2,AMBULATORY WITH STEADY GAIT.UPON FACE TO FACE ASSESSMENT PATIENT VERBALIZED THAT HE IS DEPRESSED AND HOPELESS BUT DENIES SI/HI.ENCOURAGE PATIENT TO VERBALIZE FEELINGS TO THE STAFF. PATIENT WAS REORIENTED TO THE UNIT AND UNIT POLICIES. PATIENT'S RIGHT WAS DISCUSS WITH THE PATIENT AND BOOKLET WAS GIVEN TO THE PATIENT. BODY AND CONTRABAND DONE.CUCO DOMÍNGUEZ MADE AWARE OF PATIENT ADMISSION IN THE UNIT AND TO RECONCILE MEDICATIONS.PATIENT HAS NO FAMILY TO BE NOTIFIED ON THE ADMISSION. Addendum: 01/20/18 at 1822 by EDILIA DE LA TORRE RN ABOUT NOTES WAS WRONGLY DOCUMENTED WITH THIS PATIENT.
[2018-01-20] MEDS: VENLAFAXINE XR 150 MG CAP.SR.24H PO SCH (14:18)
[2018-01-20] MEDS ORDERED: DEXTROSE 50%-WATER 50 ML DISP.SYRIN IV PRN (15:00)
[2018-01-20] MEDS: NITROFURANTOIN/NITROFURAN MAC 100 MG CAPSULE PO SCH (16:43)
[2018-01-20] MEDS: GABAPENTIN 400 MG CAPSULE PO SCH (17:00)
[2018-01-20] MEDS ORDERED: GABAPENTIN 300 MG CAPSULE PO SCH (17:00)
[2018-01-20] MEDS: FERROUS SULFATE (325 MG) 325 MG/TAB TABLET PO SCH (17:01)
[2018-01-20] MEDS: BLOOD SUGAR DIAGNOSTIC 1 EACH STRIP IN SCH ×2 (17:03→22:04)
--- NOTE | 2018-01-20 18:00 | NUR ---
GPS/RN-NOTES X4 BAGS OF MEDICATIONS LABELLED BY NIGHT NURSE WAS BROUGHT TO THE PHARMACY RECEIVED BY DORYS ( PHARMACY). X3 BAGS OF NON LABELLED MEDICATIONS STILL IN THE UNIT. LATHE TURNER (DAVEY) MADE AWARE. ENDORSE TO NIGHT CHARGE NURSE FOR F/U.
[2018-01-20] MEDS: INSULIN REGULAR, HUMAN 100 UNIT/ML 3 ML VIAL SQ PRN ×2 (18:28→22:05)
--- NOTE | 2018-01-20 18:28 | NUR ---
GPS/RN-NOTES PATIENT BLOOD SUGAR WAS 200 MG/DL, 3 UNITS OF R INSULIN GIVEN PRN ORDER.
[2018-01-20 20:00] VITALS: BP 134/72
[2018-01-20] MEDS: MONTELUKAST SODIUM (10MG) 10 MG TABLET PO SCH (21:53)
[2018-01-20] MEDS: DONEPEZIL 5 MG TABLET PO SCH (21:53)
[2018-01-20] MEDS: ATORVASTATIN 40 MG TABLET PO SCH (21:53)
[2018-01-20] MEDS: TRAMADOL HCL 50 MG TABLET PO PRN (21:53)
[2018-01-21] MEDS: TEMAZEPAM 7.5 MG CAPSULE PO PRN ×2 (00:06→22:30)
[2018-01-21] MEDS: NITROFURANTOIN/NITROFURAN MAC 100 MG CAPSULE PO SCH ×2 (04:06→16:53)
[2018-01-21 07:20] LABS: BASOPHILS # (AUTO) 0.1 /CMM (0.0-0.2); BASOPHILS % (AUTO) 0.7 % (0.0-2.0); EOSINOPHILS # (AUTO) 0.2 /CMM (0.0-0.7); HEMATOCRIT 42 % (33-45); HEMOGLOBIN 14.1 g/dL (11.5-14.8); LYMPHOCYTES # (AUTO) 2.6 /CMM (0.8-4.8); LYMPHOCYTES % (AUTO) 23.9 % (20.0-44.0); MEAN CORPUSCULAR HEMOGLOBIN 30 PG (26.0-33.0); MEAN CORPUSCULAR HGB CONC 34 g/dl (31.0-36.0); MEAN CORPUSCULAR VOLUME 90 fL (82-100); MONOCYTES % (AUTO) 8.7 % (2.0-12.0); NEUTROPHILS # (AUTO) 7.2 /CMM (1.8-8.9); NEUTROPHILS % (AUTO) 64.7 % (43.0-81.0); PLATELET COUNT (AUTO) 210 /CMM (150-450); RED BLOOD CELL COUNT(AUTO) 4.66 MIL/uL (4.0-5.2); WHITE BLOOD COUNT (AUTO) 11.1 K/uL (4.3-11.0)
[2018-01-21 07:35] LABS: ALBUMIN 3.2 g/dL (3.4-5.0); BILIRUBIN,TOTAL 0.4 mg/dL (0.2-1.0); CALCIUM, SERUM 9.9 mg/dL (8.5-10.1); CREATININE 0.9 mg/dL (0.6-1.3); TOTAL PROTEIN, SERUM 6.9 g/dL (6.4-8.2)
[2018-01-21 07:50] LABS: CHOLESTEROL 193 mg/dL (<200); HDL CHOLESTEROL 49 mg/dL (40-60); LDL 128 mg/dL (0-99); TRIGLYCERIDES 140 mg/dL (30-150)
[2018-01-21] MEDS: VENLAFAXINE XR 150 MG CAP.SR.24H PO SCH (08:14)
[2018-01-21] MEDS: LEVOTHYROXINE SODIUM 75 MCG TABLET PO SCH (08:14)
[2018-01-21] MEDS: GABAPENTIN 400 MG CAPSULE PO SCH ×3 (08:14→16:53)
[2018-01-21] MEDS: BUDESONIDE 3 MG CAP.SR.24H PO SCH (08:14)
[2018-01-21] MEDS: FERROUS SULFATE (325 MG) 325 MG/TAB TABLET PO SCH ×2 (08:14→16:53)
[2018-01-21] MEDS: BLOOD SUGAR DIAGNOSTIC 1 EACH STRIP IN SCH ×4 (08:14→22:08)
[2018-01-21] MEDS: MESALAMINE 4.8 GM PO SCH (08:15)
[2018-01-21] MEDS: INSULIN REGULAR, HUMAN 100 UNIT/ML 3 ML VIAL SQ PRN ×4 (08:20→22:10)
[2018-01-21 08:22] VITALS: BP 137/76
[2018-01-21] MEDS: METOPROLOL SUCCINATE 25 MG TAB.SR.24H PO SCH (08:27)
[2018-01-21] MEDS: ASPIRIN 81 MG TAB.CHEW PO SCH (08:27)
[2018-01-21] MEDS: MEMANTINE HCL 5 MG TABLET PO SCH (08:27)
[2018-01-21] MEDS: HYDROCHLOROTHIAZIDE 25 MG TABLET PO SCH (08:27)
[2018-01-21] MEDS: glyBURIDE 5 MG TABLET PO SCH (08:28)
[2018-01-21] MEDS: INSULIN GLARGINE, 100 UNIT/ML CARTRIDGE SQ SCH (09:36)
[2018-01-21] MEDS: POTASSIUM CHLORIDE 20 MEQ TAB.PRT.SR PO SCH ×3 (10:41→14:05)
[2018-01-21] MEDS: ARIPIPRAZOLE 2 MG TABLET PO SCH (12:09)
[2018-01-21] MEDS ORDERED: ERGOCALCIFEROL (VITAMIN D 2) 50,000 UNIT CAPSULE PO SCH (15:00)
[2018-01-21 16:09] VITALS: BP 115/80
[2018-01-21 19:51] VITALS: BP 117/71
[2018-01-21] MEDS: MONTELUKAST SODIUM (10MG) 10 MG TABLET PO SCH (22:03)
[2018-01-21] MEDS: ATORVASTATIN 40 MG TABLET PO SCH (22:03)
[2018-01-21] MEDS: DONEPEZIL 5 MG TABLET PO SCH (22:03)
[2018-01-22] MEDS: NITROFURANTOIN/NITROFURAN MAC 100 MG CAPSULE PO SCH ×2 (05:08→16:08)
[2018-01-22 08:00] VITALS: BP 100/62
[2018-01-22] MEDS: BLOOD SUGAR DIAGNOSTIC 1 EACH STRIP IN SCH ×4 (08:10→21:48)
[2018-01-22] MEDS: INSULIN REGULAR, HUMAN 100 UNIT/ML 3 ML VIAL SQ PRN ×3 (08:11→21:55)
[2018-01-22] MEDS: INSULIN GLARGINE, 100 UNIT/ML CARTRIDGE SQ SCH (08:12)
[2018-01-22] MEDS: FERROUS SULFATE (325 MG) 325 MG/TAB TABLET PO SCH ×2 (08:28→16:08)
[2018-01-22] MEDS: ARIPIPRAZOLE 2 MG TABLET PO SCH (08:28)
[2018-01-22] MEDS: LEVOTHYROXINE SODIUM 75 MCG TABLET PO SCH (08:29)
[2018-01-22] MEDS: ASPIRIN 81 MG TAB.CHEW PO SCH (08:29)
[2018-01-22] MEDS: GABAPENTIN 400 MG CAPSULE PO SCH ×3 (08:30→16:08)
[2018-01-22] MEDS: MEMANTINE HCL 5 MG TABLET PO SCH (08:30)
[2018-01-22] MEDS: glyBURIDE 5 MG TABLET PO SCH (08:30)
[2018-01-22] MEDS: VENLAFAXINE XR 150 MG CAP.SR.24H PO SCH (08:31)
[2018-01-22] MEDS: METOPROLOL SUCCINATE 25 MG TAB.SR.24H PO SCH (08:32)
[2018-01-22] MEDS: MESALAMINE 4.8 GM PO SCH (08:32)
[2018-01-22] MEDS: HYDROCHLOROTHIAZIDE 25 MG TABLET PO SCH (08:32)
[2018-01-22] MEDS: BUDESONIDE 3 MG CAP.SR.24H PO SCH (08:32)
[2018-01-22] MEDS: TRAMADOL HCL 50 MG TABLET PO PRN (08:42)
--- NOTE | 2018-01-22 14:37 | NUR ---
Initial discharge note: Patient resides at home with a roommate Argelia [place]. [place] [address] ([phone]). Patient stated that she would like to return home upon discharge. community placement worker attempted to contact patient's daughter Janet Goodrich ([phone]) however, she was unavailable, community placement worker left her a voicemail with her direct contact information. community placement worker spoke to patient's neighbor Kris Castro ([phone]) who stated that patient rents a room to Vitor Eisenberg ([phone]) who would possibly be able to pick her up. community placement worker will follow-up with patient and help form a safe and proper discharge.
--- NOTE | 2018-01-22 15:59 | NUR ---
utility maintenance worker spoke to patient's roommate Vitor Elgin ([phone]) who confirmed that he would be able to pickle pumper the patient when she is ready for discharge. utility maintenance worker will follow-up.
[2018-01-22 16:00] VITALS: BP 131/71
[2018-01-22] MEDS: BUTALB/APAP/CAFFEINE 1 EACH TABLET PO PRN (16:27)
--- NOTE | 2018-01-22 19:30 | NUR ---
GPS RN NOTE, RECEIVED PATIENT AWAKE AND IN BED, NO S/S OR COMPLAINTS OF PAIN AT THIS TIME. PATIENT IS DISPLAYING NO S/S OF APPARENT DISTRESS AT THIS TIME. PATIENT BREATHING IS UNLABORED WITH EQUAL RISE AND FALL OF THE CHEST. PATIENT IS ALERT AND ORIENTED X 2-3 ON ROOM AIR WITH A SPO2 OF 98%. PATIENT IS COMPLIANT WITH MEDICATION, DEPRESSED, COOPERATIVE, AND NEEDS REORIENTATION. PATIENT DENIES SUICIDE IDEATIONS AND HOMICIDAL IDEATIONS AT THIS TIME. PATIENT ASSISTED WITH TURNING AND REPOSITIONING Q2HR AND PRN FOR COMFORT AND CIRCULATION. PATIENT HAS NO NEEDS AT THIS TIME. PATIENT EDUCATED ON THE USE OF THE CALL DIALLO. PATIENT SIDE RAILS ARE UP X 2, BED IS LOCKED AND LOW, AND I WILL CONTINUE TO MONITOR THIS PATIENT Q 15 MIN WITH THE HELP OF STAFF.
[2018-01-22 19:40] VITALS: BP 115/65
[2018-01-22] MEDS: ATORVASTATIN 40 MG TABLET PO SCH (21:40)
[2018-01-22] MEDS: MONTELUKAST SODIUM (10MG) 10 MG TABLET PO SCH (21:40)
[2018-01-22] MEDS: DONEPEZIL 5 MG TABLET PO SCH (21:40)
[2018-01-22] MEDS: TEMAZEPAM 7.5 MG CAPSULE PO PRN (21:40)
--- NOTE | 2018-01-22 21:40 | NUR ---
GPS RN NOTE, PATIENT HAS A COMPLAINT OF NOT BEING ABLE TO SLEEP AND IS REQUESTING RESTORIL AT THIS TIME. PATIENT VITAL SIGNS ARE STABLE. GAVE RESTORIL 7.5MG PO HS PRN ORDERED. WILL REASSESS FOR INSOMNIA AND I WILL CONTINUE TO MONITOR THIS PATIENT.
--- NOTE | 2018-01-22 21:48 | NUR ---
GPS RN NOTE, PERFORMED ACCU CHECK ON PATIENT WITH A BLOOD SUGAR RESULT OF 205. GAVE 4 UNITS OF REGULAR INSULIN GIVEN PER SLIDING SCALE. WILL CONTINUE TO MONITOR THIS PATIENT.
[2018-01-23] MEDS: NITROFURANTOIN/NITROFURAN MAC 100 MG CAPSULE PO SCH ×2 (03:59→15:27)
[2018-01-23] MEDS: BLOOD SUGAR DIAGNOSTIC 1 EACH STRIP IN SCH ×4 (07:46→21:55)
[2018-01-23 08:00] VITALS: BP 131/78
[2018-01-23] MEDS: MESALAMINE 4.8 GM PO SCH (08:30)
[2018-01-23] MEDS: BUDESONIDE 3 MG CAP.SR.24H PO SCH (08:31)
[2018-01-23] MEDS: VENLAFAXINE XR 37.5 MG CAP.SR.24H PO SCH (08:32)
[2018-01-23] MEDS: ASPIRIN 81 MG TAB.CHEW PO SCH (08:33)
[2018-01-23] MEDS: GABAPENTIN 400 MG CAPSULE PO SCH ×3 (08:33→16:27)
[2018-01-23] MEDS: LEVOTHYROXINE SODIUM 75 MCG TABLET PO SCH (08:33)
[2018-01-23] MEDS: MEMANTINE HCL 5 MG TABLET PO SCH (08:33)
[2018-01-23] MEDS: FERROUS SULFATE (325 MG) 325 MG/TAB TABLET PO SCH ×2 (08:33→16:27)
[2018-01-23] MEDS: glyBURIDE 5 MG TABLET PO SCH (08:33)
[2018-01-23] MEDS: METOPROLOL SUCCINATE 25 MG TAB.SR.24H PO SCH (08:34)
[2018-01-23] MEDS: HYDROCHLOROTHIAZIDE 25 MG TABLET PO SCH (08:34)
[2018-01-23] MEDS: INSULIN REGULAR, HUMAN 100 UNIT/ML 3 ML VIAL SQ PRN ×3 (08:41→17:53)
--- NOTE | 2018-01-23 08:45 | NUR ---
GPS/RN-NOTES PATIENT BLOOD SUGAR WAS 179MG/DL, 3 UNITS OF R INSULIN GIVEN PRN ORDER.
[2018-01-23] MEDS: INSULIN GLARGINE, 100 UNIT/ML CARTRIDGE SQ SCH (08:54)
[2018-01-23] MEDS ORDERED: ARIPIPRAZOLE 2 MG TABLET PO SCH (09:00)
[2018-01-23] MEDS: BUTALB/APAP/CAFFEINE 1 EACH TABLET PO PRN (09:41)
--- NOTE | 2018-01-23 09:43 | NUR ---
GPS/RN-NOTES PATIENT C/O HEADACHE AND REQUESTING FOR FIORICET. ONE TAB OF FIORICET GIVEN PRN ORDER. WILL CONT. MONITORING.
--- NOTE | 2018-01-23 10:30 | NUR ---
GPS/RN-NOTES PATIENT AWAKE,ALERT LAYING IN HER BED CALM,DENIES ANY DISCOMFORT AT THIS TIME.
--- NOTE | 2018-01-23 12:32 | NUR ---
GPS/RN-NOTES PATIENT BLOOD SUGAR WAS 192MG/DL, 3 UNITS OF R INSULIN GIVEN PRN ORDER.
[2018-01-23] MEDS: LORAZEPAM 0.5 MG TABLET PO PRN ×2 (15:26→23:29)
[2018-01-23 16:02] VITALS: BP 113/56
--- NOTE | 2018-01-23 18:00 | NUR ---
GPS/RN-NOTES PATIENT BLOOD SUGAR WAS 138 MG/DL, 2 UNITS OF R INSULIN GIVEN PRN ORDER.
[2018-01-23 20:02] VITALS: BP 122/68
[2018-01-23] MEDS: MONTELUKAST SODIUM (10MG) 10 MG TABLET PO SCH (21:08)
[2018-01-23] MEDS: ATORVASTATIN 40 MG TABLET PO SCH (21:08)
[2018-01-23] MEDS: DONEPEZIL 5 MG TABLET PO SCH (21:08)
[2018-01-23] MEDS: TEMAZEPAM 7.5 MG CAPSULE PO PRN (21:55)
[2018-01-23 22:10] VITALS: BP 126/68
--- NOTE | 2018-01-23 22:15 | NUR ---
RECEIVED PT FROM GPS VIA SANDIE- CHAIR IN STABL CONDITION. BREATHING EVENLY. NO SOB. NAD . SKIN WARM AND DRY. NO IV SITE. NO C/O PAIN OR DISCOMFORT .VSS. ASSISTED PT TO THE BED. NEEDS ATTENDED. BED LOW LOCKED .CALL LIGHT WITHIN REACH. WILL CONT TO MONITOR,
--- NOTE | 2018-01-23 22:20 | NUR ---
RN GPS NOTES PT. TRANSFER TO MED SURG , 205 -B GPS OVER FLOW IN STABLE CONDTION , REPORT GIVEN TO SHERRY AGUIRRE . PT. TRANSFER WITH ALL BELONGINGS ,CHART AND , NO ACUTE DISTRESS NOTED , GIVEN ALL DUE MEDS
--- NOTE | 2018-01-23 23:30 | NUR ---
ativan given as ordered per pt's request for c/o anxiety. will cont to monitor ,
[2018-01-24] MEDS: NITROFURANTOIN/NITROFURAN MAC 100 MG CAPSULE PO SCH ×2 (05:32→16:03)
[2018-01-24] MEDS: BLOOD SUGAR DIAGNOSTIC 1 EACH STRIP IN SCH ×4 (06:45→21:48)
--- NOTE | 2018-01-24 07:00 | NUR ---
RN NOTE; PT IN BED AWAKE AND ALERT W/ SITTER AT THE BED SIDE. BREATHING EVENLY. NO ACUTE EVENT DURING THE NIGHT . STABLE. W/ NO BEHAVIORAL ISSUES.NEEDS ATTENDED. BED LOW LOCKED. CALL LIGHT WITHIN REACH. WILL CONT TO MONITOR AND WILL ENDORSE TO AM SHIFT FOR SARAH.
--- NOTE | 2018-01-24 07:20 | NUR ---
REPORT RECEIVED AT THE BEDSIDE. PATIENT IS RESTING COMFORTABLE IN BED. NO SOB OR DISTRESS NOTED AT THIS TIME. PATIENT DENIES PAIN AT THIS TIME. BED IN A LOW POSITION, SITTER AT BEDSIDE FOR PT SAFETY. WILL CONTINUE TO MONITOR.
[2018-01-24 08:00] VITALS: BP 114/69
--- NOTE | 2018-01-24 08:18 | NUR ---
CALLED PHARMACY AND SPOKE TO MARCUS. INFORMED HIM THAT THE PATIENT'S ABILIFY IS NOT AVAILABLE ON THE FLOOR. PHARMACIST STATES HE WILL SEND IT.
[2018-01-24] MEDS: INSULIN GLARGINE, 100 UNIT/ML CARTRIDGE SQ SCH (08:20)
[2018-01-24] MEDS: MESALAMINE 4.8 GM PO SCH (08:20)
[2018-01-24] MEDS: BUDESONIDE 3 MG CAP.SR.24H PO SCH (08:22)
[2018-01-24] MEDS: GABAPENTIN 400 MG CAPSULE PO SCH ×3 (08:22→16:03)
[2018-01-24] MEDS: VENLAFAXINE XR 37.5 MG CAP.SR.24H PO SCH (08:22)
[2018-01-24] MEDS: MEMANTINE HCL 5 MG TABLET PO SCH (08:23)
[2018-01-24] MEDS: ASPIRIN 81 MG TAB.CHEW PO SCH (08:23)
[2018-01-24] MEDS: FERROUS SULFATE (325 MG) 325 MG/TAB TABLET PO SCH ×2 (08:23→16:03)
[2018-01-24] MEDS: LEVOTHYROXINE SODIUM 75 MCG TABLET PO SCH (08:23)
[2018-01-24] MEDS: METOPROLOL SUCCINATE 25 MG TAB.SR.24H PO SCH (08:24)
[2018-01-24] MEDS: HYDROCHLOROTHIAZIDE 25 MG TABLET PO SCH (08:24)
[2018-01-24] MEDS: glyBURIDE 5 MG TABLET PO SCH (09:02)
[2018-01-24] MEDS: ARIPIPRAZOLE 5 MG TABLET PO SCH (09:54)
[2018-01-24] MEDS: BUTALB/APAP/CAFFEINE 1 EACH TABLET PO PRN ×2 (10:21→14:56)
[2018-01-24] MEDS: INSULIN REGULAR, HUMAN 100 UNIT/ML 3 ML VIAL SQ PRN ×3 (12:22→21:56)
--- NOTE | 2018-01-24 19:04 | NUR ---
NO SIGNIFICANT CHANGES IN PATIENT CONDITION THROUGHOUT THE SHIFT. NO SOB OR DISTRESS NOTED AT THIS TIME. PATIENT DENIES SIGNIFICANT PAIN. BED IN LOW POSITION, CALL LIGHT WITHIN PATIENT REACH. SITTER IS AT THE BEDSIDE. WILL ENDORSE FOR SARAH.
--- NOTE | 2018-01-24 19:35 | NUR ---
GPS RN OVERFLOW ON BED A/0X 4,APPEARS CALM AND QUIET.ABLE TO VERBALIZED NEEDS.CALL LIGHT IN REACH.WILL CONTINUE TO MONITOR BEHAVIOR.
[2018-01-24] MEDS: LORAZEPAM 0.5 MG TABLET PO PRN (19:45)
--- NOTE | 2018-01-24 19:45 | NUR ---
GPS RN OVERFLOW C/O ANXIETY,ATIVAN 0.5MG PO GIVEN ORDERED.FALL PRECAUTION OBSERVED.
[2018-01-24 20:00] VITALS: BP 110/68
--- NOTE | 2018-01-24 20:00 | NUR ---
GPS RN OVERFLOW SITTER AT BEDSIDE FOR 5250 HOLD.
[2018-01-24] MEDS: DONEPEZIL 5 MG TABLET PO SCH (21:45)
[2018-01-24] MEDS: ATORVASTATIN 40 MG TABLET PO SCH (21:45)
[2018-01-24] MEDS: MONTELUKAST SODIUM (10MG) 10 MG TABLET PO SCH (21:45)
[2018-01-24] MEDS: TEMAZEPAM 7.5 MG CAPSULE PO PRN (21:46)
--- NOTE | 2018-01-24 21:46 | NUR ---
GPS OV RN NOTES C/O INSOMNIA,RESTORIL 7.5MG PO GIVEN ORDERED.
--- NOTE | 2018-01-24 22:00 | NUR ---
GPS OVERFLOW RN NOTES BLOOD SUGAR CHECK 136,COVERED WITH HUMULIN R 2 UNITS PER SLIDING SCALE.
[2018-01-25] MEDS: NITROFURANTOIN/NITROFURAN MAC 100 MG CAPSULE PO SCH ×2 (04:35→16:14)
--- NOTE | 2018-01-25 04:35 | NUR ---
GPS OV RN NOTES C/O HEADACHE,TYLENOL 650MG PO GIVEN PER PATIENT REQUEST.
[2018-01-25] MEDS: BLOOD SUGAR DIAGNOSTIC 1 EACH STRIP IN SCH ×2 (06:01→11:29)
--- NOTE | 2018-01-25 07:18 | NUR ---
GPS OV RN NOTES CALM AND QUIET AT NIGHT.SLEPT 8 HOURS,MED COMPLIANT.SITTER AT BEDSIDE.ENDORSED TO PATRICK RN FOR SARAH.
--- NOTE | 2018-01-25 07:19 | NUR ---
MS RN OPENING NOTES RECEIVED PT FROM NIGHTSHIFT NURSE IN STABLE CONDITION. PT IS A/O X3. NO SOB OR SIGNS OF DISTRESS NOTED. BREATHING IS EVEN AND UNLABORED. SHE DENIES ANY PAIN AT THIS TIME. SHE DENIES ANY SUICIDAL IDEATION. NO BEHAVIORAL ISSUES OBSERVED AT THIS TIME. PER NIGHTSHIFT NURSE, PT HAS BEEN CALM, COOPERATIVE, AND SLEPT THROUGHOUT THE NIGHT. BED IN LOW LOCKED POSITION, SIDE RAILS UP X2, CALL LIGHT WITHIN REACH, SITTER AT BEDSIDE. WILL CONTINUE TO MONITOR.
[2018-01-25 08:00] VITALS: BP 115/77
[2018-01-25] MEDS: ARIPIPRAZOLE 5 MG TABLET PO SCH (08:29)
[2018-01-25] MEDS: FERROUS SULFATE (325 MG) 325 MG/TAB TABLET PO SCH ×2 (08:29→16:14)
[2018-01-25] MEDS: LEVOTHYROXINE SODIUM 75 MCG TABLET PO SCH (08:29)
[2018-01-25] MEDS: GABAPENTIN 400 MG CAPSULE PO SCH ×3 (08:29→16:14)
[2018-01-25] MEDS: ASPIRIN 81 MG TAB.CHEW PO SCH (08:30)
[2018-01-25] MEDS: MEMANTINE HCL 5 MG TABLET PO SCH (08:30)
[2018-01-25] MEDS: VENLAFAXINE XR 37.5 MG CAP.SR.24H PO SCH (08:30)
[2018-01-25] MEDS: glyBURIDE 5 MG TABLET PO SCH (08:30)
[2018-01-25] MEDS: MESALAMINE 4.8 GM PO SCH (08:31)
[2018-01-25] MEDS: BUDESONIDE 3 MG CAP.SR.24H PO SCH (08:31)
[2018-01-25] MEDS: BUTALB/APAP/CAFFEINE 1 EACH TABLET PO PRN ×2 (08:37→16:14)
[2018-01-25] MEDS: INSULIN GLARGINE, 100 UNIT/ML CARTRIDGE SQ SCH (08:43)
[2018-01-25] MEDS: INSULIN REGULAR, HUMAN 100 UNIT/ML 3 ML VIAL SQ PRN ×2 (08:43→12:43)
[2018-01-25] MEDS: METOPROLOL SUCCINATE 25 MG TAB.SR.24H PO SCH (08:44)
[2018-01-25 08:45] VITALS: BP 115/77
[2018-01-25] MEDS: HYDROCHLOROTHIAZIDE 25 MG TABLET PO SCH (08:45)
[2018-01-25] MEDS: TRAMADOL HCL 50 MG TABLET PO PRN (11:29)
--- NOTE | 2018-01-25 11:39 | NUR ---
GPS RN OVERFLOW NOTES PT TAKEN TO GPS IN STABLE CONDITION FOR HEARING IN REGARDS TO HER HOLD
--- NOTE | 2018-01-25 12:13 | NUR ---
PT. WITH CERTIFICATION REVIEW HEARING REPRESENTED BY HEARING REFEREE, ADVOCATE AND HOSPITAL STAFF. THE PT., AFTER TALKING WITH THE ADVOCATE, HAS DECIDED TO BE PRESENT AT THE CERTIFICATION HEARING. AFTER CONSIDERING ALL THE EVIDENCE PRESENTED, THE HEARING REFEREE FINDS THAT: THERE IS NOT PROBABLE CAUSE TO BELIEVE THAT THE PERSON, A RESULT OF A MENTAL DISORDER IS A DANGER TO SELF, A DANGER TO OTHERS OR GRAVELY DISABLED. THE PATIENT MUST BE RELEASED OR REMAIN AT THE FACILITY ON A VOLUNTARY BASIS.
--- NOTE | 2018-01-25 12:59 | NUR ---
MS RN NOTES PT'S HOLD HAS BEEN RELEASE. PER GPS CHARGE "PT MAY BE DISCHARGED". [place] THE NURSING CLEAT THROWER WAS MADE AWARE AND STATES 'KEEP PT IN MS 2 AND DISCHARGE HER FROM THERE". WILL CARRY OUT ONCE D/C ORDER IS IN
--- NOTE | 2018-01-25 14:55 | NUR ---
DR. MONTENEGRO WITH AN ORDER TO D/C HOME AND TO FOLLOW UP WITH PSYCH AND MEDICAL DOCTORS.
--- NOTE | 2018-01-25 15:32 | NUR ---
Discharge Note: Patient will be discharged home [address] [place] [address] ([phone]). Patients roommate Vitor Eisenberg ([phone]) will pick her up via private vehicle. Patient needs Rx. Patient appears calm and denies suicidal and homicidal ideations. Patient will follow-up with her adoption services manager Dr. Blade Brooks is her PCP [address] [place] [address]. Patient will also follow-up with her psychologist Dr. Kris Talbert ([phone]) [address] [place] [address]. Patient stated that she will see a psychiatrist referred by her psychologist. For smoking cessation, patient was referred to the [facility] [address] [place] [address] Upstairs, Room 8, for the meeting scheduled for Sunday January 28, 2018 at 5:30pm. Facilitated info to IDT team who are in agreement with discharge arrangement. The multidisciplinary exitcare form was done, printed, signed, and given to the patient. Addendum: 01/25/18 at 1553 by BRADEN ANDERS In addition, Patient receives home health care services from [facility] phone: . section gang worker spoke to patient's home health care nurse Idalia , who stated that she will follow-up with patient tomorrow morning 3/16/17 at 8:30am.
--- NOTE | 2018-01-25 16:08 | NUR ---
Upon patient's home health nurse Idalia's request, fur floor worker faxed paperwork to [facility] phone: .
--- NOTE | 2018-01-25 17:01 | NUR ---
MS ERP PM NOTES PT WAS DISCHARGED FROM FACILITY IN STABLE CONDITION. ALL NEEDS WERE MET DURING SHIFT AND ORDERS CARRIED OUT ACCORDINGLY. ALL DISCHARGE MATERIALS DISCUSSED WITH THE PT AND HER CAREGIVER. PT VERBALIZED FULL UNDERSTANDING OF DISCHARGE INSTRUCTIONS AND SIGNED ALL RESPECTIVE PAPERWORK INCLUDING THE LEGAL DOCUMENTATION FROM GPS. PT'S CAREGIVER ALSO SIGNED HIS RESPECTIVE PAPERWORK. PT'S WALLET WAS RETRIEVED FROM SAFE AND GIVEN BACK TO THE PT PRIOR TO DISCHARGE. ALL BELONGINGS WERE GIVEN TO PT INCLUDING HER HOME MEDICATIONS. PT SIGNED BELONGINGS SHEET(S) IN AGREEMENT THAT SHE LEFT WITH ALL BELONGINGS. SHE DENIED ANY SUICIDAL OR HOMICIDAL IDEATION PRIOR TO DISCHARGE. SHE WAS SAFELY ESCORTED TO THE FRONT LOBBY BY THE DATA WAREHOUSING MANAGER AND LEFT VIA PRIVATE VEHICLE. COPIES OF ALL BELONGINGS AND DISCHARGE PHOTOS PLACED IN PT'S CHART.
== END 2018-01-25 16:53 | disposition home or self-care (01) | DRG 885 ==
LOC: ER 17:12 → GPS 01-20 01:09 → GPSOV2 01-23 22:22
PROVIDERS: ADMIT Psychiatry & Neurology Psychiatry; ATTEND Internal Medicine
DX: F39 Unspecified mood [affective] disorder (principal); F02.80 Dementia in other diseases classified elsewhere, unspecified severity, without behavioral disturbance, psychotic disturbance, mood disturbance, and anxiety; E11.65 Type 2 diabetes mellitus with hyperglycemia; E44.0 Moderate protein-calorie malnutrition; F32.3 Major depressive disorder, single episode, severe with psychotic features; F13.20 Sedative, hypnotic or anxiolytic dependence, uncomplicated; G30.9 Alzheimer's disease, unspecified; N39.0 Urinary tract infection, site not specified; F31.81 Bipolar II disorder; D63.8 Anemia in other chronic diseases classified elsewhere; E78.5 Hyperlipidemia, unspecified; I10 Essential (primary) hypertension; J42 Unspecified chronic bronchitis; K21.9 Gastro-esophageal reflux disease without esophagitis; K58.9 Irritable bowel syndrome, unspecified; M06.9 Rheumatoid arthritis, unspecified; M79.7 Fibromyalgia; Z79.4 Long term (current) use of insulin; Z91.5 Personal history of self-harm; Z73.6 Limitation of activities due to disability; Z68.25 Body mass index [BMI] 25.0-25.9, adult
CPT/HCPCS: 36415; 70450-TC; 80048-TC; 80053-TC; 80061-TC; 80076-TC; 80305; 81000-TC; 82962-TC; 85025-TC; 87081-TC; A4606; G0480; J1815; Z7610

== ENCOUNTER 2019-02-14 13:59 | Emergency (ER) | payer BC ==
[~2019-02-14] VITALS: Ht 152.4 cm; Wt 65.8 kg
[~2019-02-14 13:59] MED LIST changes: -ALPR0.25 PO; -AMLO10TA2 PO; +AMLO10TA7 PO; -ARIP2TAB11 PO; +ASPI-1169 PO; +BUPR-96 PO; -CODE118S2 PO; +ERGO500040 PO; +FERR325T23 PO; +GLYB5TAB7 PO; +HYDR-4384 PO; +METO25TA3 PO; +OMEP20CA10 PO; +ONDA4TAB8 PO; -SERT100T12 PO; -TEMA15CA PO; +TRAM50TA2 PO; -VENL75TA4 PO
--- NOTE | 2019-02-14 14:05 | NUR ---
BIB RA WITH COMPLIANT OF HEADACHE, LACERATION ON L EYEBROW, L UPPERT LIPS LACERATION, LFA SKIN TEAR AND LFA LACERATION, S/P GLF AT HOME. COMPLAINT OF DIZZINESS AFTER THE FALL. PT IS AAOX4. VERBALLY RESPONSIVE. NO AACUTE DISTRESS. NO SOB, DENIES CP. AWAITING MD SHANKARAL AND ORDERS
[2019-02-14] MEDS ORDERED: HYDROCODONE/APAP 5/325MG 1 EACH TABLET PO ONE (14:30)
[2019-02-14] MEDS ORDERED: ONDANSETRON 4 MG TAB.RAPDIS PO ONE (14:30)
[2019-02-14] MEDS ORDERED: ONDANSETRON 4 MG TAB.RAPDIS ONE (14:44)
[2019-02-14] MEDS ORDERED: HYDROCODONE/APAP 5/325MG 1 EACH TABLET ONE (14:44)
[2019-02-14] MEDS ORDERED: TDAP [DIPH/PERTUSSIS/TET] 0.5 ML VIAL IM ONE ×2 (14:49→15:00)
--- NOTE | 2019-02-14 15:03 | NUR ---
PT BEING WHEELED TO CT.
--- NOTE | 2019-02-14 15:09 | NUR ---
PT BACK FROM CT
[2019-02-14] MEDS ORDERED: LIDOCAINE 1%-EPI 1:100,000 20 ML VIAL ONE (15:18)
[2019-02-14] MEDS ORDERED: LIDOCAINE 1%-EPI 1:100,000 20 ML VIAL TP ONE (15:30)
--- NOTE | 2019-02-14 17:00 | NUR ---
PT AWAITING FOR CAB TO BRING HER BACK TO HER HOUSE. PROVIDED WITH SHIRT AND PANTS.
--- NOTE | 2019-02-14 18:00 | NUR ---
Patient discharged to home in stable condition. Written and verbal after care instructions given. Patient verbalizes understanding of instruction.
[2019-02-14 18:26] VITALS: BP 103/71
== END 2019-02-14 18:00 | disposition home or self-care (01) ==
LOC: ER 14:01
DX: S01.112A Laceration without foreign body of left eyelid and periocular area, initial encounter (principal); S30.0XXA Contusion of lower back and pelvis, initial encounter; S51.802A Unspecified open wound of left forearm, initial encounter; S61.502A Unspecified open wound of left wrist, initial encounter; I10 Essential (primary) hypertension; E78.5 Hyperlipidemia, unspecified; K21.9 Gastro-esophageal reflux disease without esophagitis; E11.9 Type 2 diabetes mellitus without complications; G89.29 Other chronic pain; F31.9 Bipolar disorder, unspecified; G30.9 Alzheimer's disease, unspecified; K58.9 Irritable bowel syndrome, unspecified; M79.7 Fibromyalgia; Z96.649 Presence of unspecified artificial hip joint; Z98.890 Other specified postprocedural states; Z79.82 Long term (current) use of aspirin; Z79.4 Long term (current) use of insulin; Z79.899 Other long term (current) drug therapy; W01.0XXA Fall on same level from slipping, tripping and stumbling without subsequent striking against object, initial encounter; Y93.89 Activity, other specified; Y92.89 Other specified places as the place of occurrence of the external cause; Y99.8 Other external cause status
CPT/HCPCS: 12011; 70450; 70486; 72170; 90471; 90715; 99284; A6402; A6403; J3490; Q0162

== ENCOUNTER 2019-04-05 21:36 | Emergency (ER) | payer BC ==
[~2019-04-05] VITALS: Ht 162.6 cm; Wt 68.9 kg
--- NOTE | 2019-04-05 22:09 | NUR ---
BIBRA 88 FROM HOME C/O ABD' PAIN, EPIGASTRIC AREA X 30 MIN, NO N/V/D, VS STABLE, PLACED ON ER BED 14, AWAITING TO BE EVAL BY ER MD.
[2019-04-05 22:56] LABS: BASOPHILS % (AUTO) 0.2 % (0.0-2.0); EOSINOPHILS % (AUTO) 2.1 % (0.0-6.0); HEMATOCRIT 34 % (33-45); HEMOGLOBIN 10.9 g/dL (11.5-14.8); LYMPHOCYTES # (AUTO) 3.4 /CMM (0.8-4.8); LYMPHOCYTES % (AUTO) 29.7 % (20.0-44.0); MEAN CORPUSCULAR HGB CONC 32 g/dl (31.0-36.0); MEAN CORPUSCULAR VOLUME 87 fL (82-100); MONOCYTES # (AUTO) 1.1 /CMM (0.1-1.30); MONOCYTES % (AUTO) 9.4 % (2.0-12.0); NEUTROPHILS # (AUTO) 6.6 /CMM (1.8-8.9); NEUTROPHILS % (AUTO) 58.6 % (43.0-81.0); PLATELET COUNT (AUTO) 336 /CMM (150-450); RED BLOOD CELL COUNT(AUTO) 3.92 MIL/uL (4.0-5.2); WHITE BLOOD COUNT (AUTO) 11.3 K/uL (4.3-11.0)
[2019-04-05 23:03] LABS: CALCIUM, SERUM 9.6 mg/dL (8.5-10.1); CARBON DIOXIDE 24 mmol/L (21-32); CHLORIDE 107 mmol/L (98-107); GLUCOSE 138 mg/dL (74-106); POTASSIUM 3.4 mmol/L (3.5-5.1); SODIUM SERUM 141 mmol/L (136-145); UREA NITROGEN, BLOOD 16 mg/dL (7-18)
[2019-04-05 23:09] LABS: ALANINE AMINOTRANSFERASE 14 U/L (12-78); ALBUMIN 2.7 g/dL (3.4-5.0); ALKALINE PHOSPHATASE 108 U/L (46-116); ASPARTATE AMINOTRANSFERASE 15 U/L (15-37); BILIRUBIN,DIRECT 0.1 mg/dL (0.0-0.2); BILIRUBIN,TOTAL 0.3 mg/dL (0.2-1.0); LIPASE 109 U/L (73-393); TOTAL PROTEIN, SERUM 6.4 g/dL (6.4-8.2)
[2019-04-05 23:22] LABS: APPEARANCE,URINE Clear (CLEAR); BILIRUBIN,URINE Negative (NEGATIVE); BLOOD, URINE Negative Ery/uL (NEGATIVE); COLOR,URINE Yellow (YELLOW); KETONES,URINE Negative (NEGATIVE); LEUKOCYTE ESTERASE ,URINE Negative (NEGATIVE); NITRITE, URINE Negative (NEGATIVE); PH,URINE 5.5 (5.0-8.0); PROTEIN,URINE Negative (NEGATIVE); UGLUCOSE Negative (NEGATIVE); UROBILINOGEN,URINE 0.2 EU/dL (0.2)
[2019-04-05] MEDS ORDERED: ACETAMINOPHEN 325 MG TABLET PO ONE (23:30)
[2019-04-05] MEDS ORDERED: KETOROLAC TROMETHAMINE INJ 30 MG/ML VIAL IV ONE (23:30)
[2019-04-05] MEDS ORDERED: ACETAMINOPHEN 325 MG TABLET ONE (23:34)
[2019-04-05] MEDS ORDERED: KETOROLAC TROMETHAMINE 15 MG/ML VIAL ONE (23:34)
--- NOTE | 2019-04-06 00:15 | NUR ---
ATTEMPTED TO CALL ROOMMATE,NO ANSWER, NO GRECO TO GO INTO HER APARTMENT EVEN IF WE SEND HER VIA AMBULANCE. DR SAMUELS AWARE
--- NOTE | 2019-04-06 00:39 | NUR ---
ROOMMATE CALLED AGAIN. NO ANSWER. JEMIMA LEFT
--- NOTE | 2019-04-06 00:41 | NUR ---
[phone] Gino GONZALEZ (ROOM MATE)
--- NOTE | 2019-04-06 02:00 | NUR ---
pt in bed awake, denies any pain, clean and dry, vs stable, will cont' to monitor.
--- NOTE | 2019-04-06 04:00 | NUR ---
pt appears comfortable vs stable, will cont' to monitor.
--- NOTE | 2019-04-06 06:00 | NUR ---
called pt's house for rm mate to be in position to open door upon dc pt home, left message, still no answer.
[2019-04-06] MEDS ORDERED: ACETAMINOPHEN 325 MG TABLET ONE (07:29)
[2019-04-06] MEDS ORDERED: ACETAMINOPHEN 325 MG TABLET PO ONE (07:30)
--- NOTE | 2019-04-06 07:39 | NUR ---
Avila NO response Voice Message left
--- NOTE | 2019-04-06 07:47 | NUR ---
0730: Tylenol given as ordered for headache. 0745: Called all possible numbers given; Janet Sultana [phone] left message, Kris Castro [phone] no ansewer, unable to leave message, and Michel Quinones [phone], left message.
--- NOTE | 2019-04-06 08:13 | NUR ---
Deployed [employer] Dispatch tp check pt domicile for any family/room mate that will be able to provide more information or pick patient up. Spoke to Fire Apparatus Engineer [phone]
[2019-04-06 08:28] LABS: ACETAMINOPHEN 15 ug/ml (10-30)
[2019-04-06 08:29] LABS: ALCOHOL, BLOOD < 3 mg/dL (0-0); SALICYLATE 2.4 mg/dL (2.8-20.0)
--- NOTE | 2019-04-06 09:02 | NUR ---
FRANCISCO JAVIER, CLOSE FRIEND CALLED STATES WILL CLOTH EXAMINER PATIENT.
[2019-04-06 10:19] VITALS: BP 145/81
--- NOTE | 2019-04-06 10:19 | NUR ---
Picked up by Vitor lovelace. Patient stable, Able to walk.
[2019-04-11] MEDS ORDERED: DULO30CA2 PO (10:17)
== END 2019-04-06 10:00 | disposition home or self-care (01) ==
LOC: ER 21:38
DX: R33.9 Retention of urine, unspecified (principal); R10.13 Epigastric pain; E87.6 Hypokalemia; E88.09 Other disorders of plasma-protein metabolism, not elsewhere classified; D64.9 Anemia, unspecified; D72.829 Elevated white blood cell count, unspecified; G30.9 Alzheimer's disease, unspecified; I10 Essential (primary) hypertension; E11.9 Type 2 diabetes mellitus without complications; K21.9 Gastro-esophageal reflux disease without esophagitis; K58.9 Irritable bowel syndrome, unspecified; F31.9 Bipolar disorder, unspecified; G89.29 Other chronic pain; M54.9 Dorsalgia, unspecified; M79.7 Fibromyalgia; Z96.649 Presence of unspecified artificial hip joint; Z98.890 Other specified postprocedural states; Z79.82 Long term (current) use of aspirin; Z79.4 Long term (current) use of insulin
CPT/HCPCS: 36415; 80048; 80076; 80305; 80307; 80329; 81001; 83690; 85025; 96374; 99283; G0480; J1885; 81000-TC

== ENCOUNTER 2019-04-11 13:26 | Inpatient (IN) | payer BC, OTHER ==
[~2019-04-11] VITALS: Ht 162.6 cm; Wt 69.4 kg
[~2019-04-11 13:26] MED LIST changes: +DULO30CA2 PO
[2019-04-11] MEDS ORDERED: MAG HYDROX/AL HYDROX/SIMETH 30 ML UDC PO PRN (15:00)
[2019-04-11] MEDS ORDERED: MAGNESIUM HYDROXIDE 30 ML UDC PO PRN (15:00)
[2019-04-11 15:33] VITALS: BP 119/66
[2019-04-11] MEDS ORDERED: ONDANSETRON 4 MG TAB.RAPDIS PO PRN (16:00)
[2019-04-11 16:24] VITALS: BP 105/67
[2019-04-11] MEDS ORDERED: DEXTROSE 50%-WATER 50 ML DISP.SYRIN IV PRN (16:30)
[2019-04-11] MEDS: MEMANTINE HCL 5 MG TABLET PO SCH (17:00)
[2019-04-11] MEDS ORDERED: OMEPRAZOLE 20 MG CAPSULE.DR PO SCH (17:00)
[2019-04-11] MEDS ORDERED: GABAPENTIN 400 MG CAPSULE PO SCH (17:00)
[2019-04-11] MEDS: FERROUS SULFATE (325 MG) 325 MG/TAB TABLET PO SCH (17:03)
[2019-04-11] MEDS: BLOOD SUGAR DIAGNOSTIC 1 EACH STRIP IN SCH ×2 (17:27→21:28)
[2019-04-11] MEDS: INSULIN REGULAR, HUMAN 100 UNIT/ML 3 ML VIAL SQ PRN ×2 (17:32→21:21)
[2019-04-11] MEDS ORDERED: INSULIN GLARGINE, 100 UNIT/ML CARTRIDGE SQ SCH (18:00)
[2019-04-11] MEDS: GABAPENTIN 400 MG CAPSULE PO SCH (18:18)
[2019-04-11 20:00] VITALS: BP 130/52
[2019-04-11] MEDS: LORAZEPAM 0.5 MG TABLET PO PRN (20:47)
[2019-04-11] MEDS: PANTOPRAZOLE 40 MG TABLET.DR PO SCH (21:27)
[2019-04-11] MEDS: DONEPEZIL 5 MG TABLET PO SCH (21:27)
[2019-04-11] MEDS: ATORVASTATIN 40 MG TABLET PO SCH (21:27)
[2019-04-11] MEDS: INSULIN GLARGINE, 100 UNIT/ML CARTRIDGE SQ SCH (21:27)
[2019-04-11] MEDS: MONTELUKAST SODIUM (10MG) 10 MG TABLET PO SCH (21:28)
[2019-04-11 21:30] VITALS: BP 125/68
[2019-04-12] MEDS ORDERED: INSULIN LISPRO 8 UNIT SQ SCH (07:30)
[2019-04-12] MEDS: BLOOD SUGAR DIAGNOSTIC 1 EACH STRIP IN SCH ×4 (07:41→21:27)
[2019-04-12 07:43] LABS: ALANINE AMINOTRANSFERASE 22 U/L (12-78); ALBUMIN 2.2 g/dL (3.4-5.0); ALKALINE PHOSPHATASE 97 U/L (46-116); ASPARTATE AMINOTRANSFERASE 23 U/L (15-37); BILIRUBIN,TOTAL 0.1 mg/dL (0.2-1.0); CALCIUM, SERUM 9.4 mg/dL (8.5-10.1); CARBON DIOXIDE 25 mmol/L (21-32); CHLORIDE 104 mmol/L (98-107); CREATININE 0.7 mg/dL (0.6-1.3); GLUCOSE 197 mg/dL (74-106); POTASSIUM 4.6 mmol/L (3.5-5.1); SODIUM SERUM 137 mmol/L (136-145); TOTAL PROTEIN, SERUM 5.7 g/dL (6.4-8.2); UREA NITROGEN, BLOOD 15 mg/dL (7-18)
[2019-04-12 08:00] VITALS: BP 122/71
[2019-04-12] MEDS: LEVOTHYROXINE SODIUM 75 MCG TABLET PO SCH (08:28)
[2019-04-12] MEDS: ACETAMINOPHEN 325 MG TABLET PO PRN ×2 (08:29→18:38)
[2019-04-12] MEDS: INSULIN REGULAR, HUMAN 100 UNIT/ML 3 ML VIAL SQ PRN ×2 (08:37→13:32)
[2019-04-12] MEDS ORDERED: MESALAMINE 4.8 GM PO SCH (09:00)
[2019-04-12] MEDS: FERROUS SULFATE (325 MG) 325 MG/TAB TABLET PO SCH ×2 (09:39→17:11)
[2019-04-12] MEDS: ASPIRIN 81 MG TAB.CHEW PO SCH (09:39)
[2019-04-12] MEDS: GABAPENTIN 400 MG CAPSULE PO SCH ×3 (09:39→17:11)
[2019-04-12] MEDS: PANTOPRAZOLE 40 MG TABLET.DR PO SCH ×2 (09:39→21:26)
[2019-04-12] MEDS: glyBURIDE 5 MG TABLET PO SCH (09:40)
[2019-04-12] MEDS: AMLODIPINE BESYLATE 10 MG TABLET PO SCH (09:40)
[2019-04-12] MEDS: BUDESONIDE 3 MG CAP.SR.24H PO SCH (09:40)
[2019-04-12] MEDS: MEMANTINE HCL 5 MG TABLET PO SCH (09:40)
[2019-04-12] MEDS: HYDROCHLOROTHIAZIDE 25 MG TABLET PO SCH (09:49)
[2019-04-12] MEDS: ISOSORBIDE MONONITRATE (30MG) 30 MG TAB.SR.24H PO SCH (09:50)
[2019-04-12] MEDS: METOPROLOL SUCCINATE 25 MG TAB.SR.24H PO SCH (09:50)
[2019-04-12 10:11] LABS: CHOLESTEROL 148 mg/dL (<200); HDL CHOLESTEROL 34 mg/dL (40-60); LDL 98 mg/dL (0-99); TRIGLYCERIDES 109 mg/dL (30-150)
[2019-04-12] MEDS: MESALAMINE 400 MG CAP PO SCH ×2 (13:30→17:14)
[2019-04-12] MEDS: DULOXETINE HCL 30 MG CAPSULE.DR PO SCH (13:34)
[2019-04-12 16:00] VITALS: BP 115/67
[2019-04-12] MEDS: DIVALPROEX SODIUM 125 MG CAP.SPRINK PO SCH (17:11)
[2019-04-12 20:00] VITALS: BP 116/52
[2019-04-12] MEDS: MONTELUKAST SODIUM (10MG) 10 MG TABLET PO SCH (21:26)
[2019-04-12] MEDS: ARIPIPRAZOLE 5 MG TABLET PO SCH (21:26)
[2019-04-12] MEDS: DONEPEZIL 5 MG TABLET PO SCH (21:27)
[2019-04-12] MEDS: ATORVASTATIN 40 MG TABLET PO SCH (21:27)
[2019-04-12] MEDS: INSULIN GLARGINE, 100 UNIT/ML CARTRIDGE SQ SCH (21:40)
[2019-04-12 22:00] VITALS: BP 117/65
[2019-04-12] MEDS: LORAZEPAM 0.5 MG TABLET PO PRN (23:12)
[2019-04-13] MEDS: ACETAMINOPHEN 325 MG TABLET PO PRN ×2 (02:23→14:52)
[2019-04-13 08:00] VITALS: BP 138/79
[2019-04-13] MEDS: BLOOD SUGAR DIAGNOSTIC 1 EACH STRIP IN SCH ×4 (08:30→21:37)
[2019-04-13] MEDS: INSULIN REGULAR, HUMAN 100 UNIT/ML 3 ML VIAL SQ PRN ×3 (09:59→18:39)
[2019-04-13] MEDS: ARIPIPRAZOLE 5 MG TABLET PO SCH ×2 (10:06→21:37)
[2019-04-13] MEDS: AMLODIPINE BESYLATE 10 MG TABLET PO SCH ×2 (10:06→11:45)
[2019-04-13] MEDS: DIVALPROEX SODIUM 125 MG CAP.SPRINK PO SCH ×2 (10:06→18:31)
[2019-04-13] MEDS: MEMANTINE HCL 5 MG TABLET PO SCH (10:06)
[2019-04-13] MEDS: LEVOTHYROXINE SODIUM 75 MCG TABLET PO SCH (10:06)
[2019-04-13] MEDS: METOPROLOL SUCCINATE 25 MG TAB.SR.24H PO SCH (10:07)
[2019-04-13] MEDS: GABAPENTIN 400 MG CAPSULE PO SCH ×3 (10:07→18:31)
[2019-04-13] MEDS: ASPIRIN 81 MG TAB.CHEW PO SCH (10:07)
[2019-04-13] MEDS: glyBURIDE 5 MG TABLET PO SCH (10:08)
[2019-04-13] MEDS: ISOSORBIDE MONONITRATE (30MG) 30 MG TAB.SR.24H PO SCH (10:08)
[2019-04-13] MEDS: PANTOPRAZOLE 40 MG TABLET.DR PO SCH ×2 (10:09→21:34)
[2019-04-13] MEDS: BUDESONIDE 3 MG CAP.SR.24H PO SCH (10:09)
[2019-04-13] MEDS: MESALAMINE 400 MG CAP PO SCH ×3 (10:13→18:31)
[2019-04-13] MEDS: HYDROCHLOROTHIAZIDE 25 MG TABLET PO SCH (11:45)
[2019-04-13] MEDS: FERROUS SULFATE (325 MG) 325 MG/TAB TABLET PO SCH ×2 (12:40→18:31)
[2019-04-13] MEDS: DULOXETINE HCL 30 MG CAPSULE.DR PO SCH (13:49)
[2019-04-13 16:00] VITALS: BP 121/57
[2019-04-13 19:44] VITALS: BP 104/61
[2019-04-13] MEDS: ATORVASTATIN 40 MG TABLET PO SCH (21:35)
[2019-04-13] MEDS: INSULIN GLARGINE, 100 UNIT/ML CARTRIDGE SQ SCH (21:35)
[2019-04-13] MEDS: MONTELUKAST SODIUM (10MG) 10 MG TABLET PO SCH (21:35)
[2019-04-13] MEDS: DONEPEZIL 5 MG TABLET PO SCH (21:38)
[2019-04-14] MEDS: LORAZEPAM 0.5 MG TABLET PO PRN ×2 (00:09→13:42)
[2019-04-14 08:00] VITALS: BP 129/61
[2019-04-14] MEDS: BLOOD SUGAR DIAGNOSTIC 1 EACH STRIP IN SCH ×4 (08:30→21:01)
[2019-04-14] MEDS: LEVOTHYROXINE SODIUM 75 MCG TABLET PO SCH (08:30)
[2019-04-14] MEDS ORDERED: ERGOCALCIFEROL (VITAMIN D 2) 50,000 UNIT CAPSULE PO SCH (09:00)
[2019-04-14] MEDS: ASPIRIN 81 MG TAB.CHEW PO SCH (09:17)
[2019-04-14] MEDS: PANTOPRAZOLE 40 MG TABLET.DR PO SCH ×2 (09:17→21:00)
[2019-04-14] MEDS: FERROUS SULFATE (325 MG) 325 MG/TAB TABLET PO SCH ×2 (09:18→17:42)
[2019-04-14] MEDS: ISOSORBIDE MONONITRATE (30MG) 30 MG TAB.SR.24H PO SCH (09:18)
[2019-04-14] MEDS: METOPROLOL SUCCINATE 25 MG TAB.SR.24H PO SCH (09:18)
[2019-04-14] MEDS: MEMANTINE HCL 5 MG TABLET PO SCH (09:18)
[2019-04-14] MEDS: DIVALPROEX SODIUM 125 MG CAP.SPRINK PO SCH ×2 (09:18→17:42)
[2019-04-14] MEDS: AMLODIPINE BESYLATE 10 MG TABLET PO SCH (09:18)
[2019-04-14] MEDS: HYDROCHLOROTHIAZIDE 25 MG TABLET PO SCH (09:19)
[2019-04-14] MEDS: BUDESONIDE 3 MG CAP.SR.24H PO SCH (09:22)
[2019-04-14] MEDS: glyBURIDE 5 MG TABLET PO SCH (09:22)
[2019-04-14] MEDS: MESALAMINE 400 MG CAP PO SCH ×3 (09:22→17:40)
[2019-04-14] MEDS: GABAPENTIN 400 MG CAPSULE PO SCH ×3 (09:27→17:42)
[2019-04-14] MEDS: ARIPIPRAZOLE 5 MG TABLET PO SCH ×2 (09:27→21:00)
[2019-04-14] MEDS: INSULIN REGULAR, HUMAN 100 UNIT/ML 3 ML VIAL SQ PRN ×4 (09:28→21:04)
[2019-04-14] MEDS: ACETAMINOPHEN 325 MG TABLET PO PRN ×2 (11:09→17:42)
[2019-04-14] MEDS: DULOXETINE HCL 30 MG CAPSULE.DR PO SCH (13:07)
[2019-04-14 16:00] VITALS: BP 114/71
[2019-04-14 20:00] VITALS: BP 90/51
[2019-04-14] MEDS: DONEPEZIL 5 MG TABLET PO SCH (21:00)
[2019-04-14] MEDS: MONTELUKAST SODIUM (10MG) 10 MG TABLET PO SCH (21:00)
[2019-04-14] MEDS: ATORVASTATIN 40 MG TABLET PO SCH (21:01)
[2019-04-14] MEDS: INSULIN GLARGINE, 100 UNIT/ML CARTRIDGE SQ SCH (21:03)
[2019-04-14 22:30] VITALS: BP 105/63
[2019-04-15] MEDS: BLOOD SUGAR DIAGNOSTIC 1 EACH STRIP IN SCH ×4 (07:30→21:30)
[2019-04-15 08:00] VITALS: BP 126/66
[2019-04-15] MEDS: glyBURIDE 5 MG TABLET PO SCH (11:26)
[2019-04-15] MEDS: BUDESONIDE 3 MG CAP.SR.24H PO SCH (11:26)
[2019-04-15] MEDS: MESALAMINE 400 MG CAP PO SCH ×3 (11:26→17:26)
[2019-04-15] MEDS: METOPROLOL SUCCINATE 25 MG TAB.SR.24H PO SCH (11:27)
[2019-04-15] MEDS: GABAPENTIN 400 MG CAPSULE PO SCH ×3 (11:28→16:26)
[2019-04-15] MEDS: LEVOTHYROXINE SODIUM 75 MCG TABLET PO SCH (11:28)
[2019-04-15] MEDS: PANTOPRAZOLE 40 MG TABLET.DR PO SCH ×2 (11:28→21:29)
[2019-04-15] MEDS: ARIPIPRAZOLE 5 MG TABLET PO SCH ×2 (11:28→21:29)
[2019-04-15] MEDS: MEMANTINE HCL 5 MG TABLET PO SCH (11:29)
[2019-04-15] MEDS: ASPIRIN 81 MG TAB.CHEW PO SCH (11:29)
[2019-04-15] MEDS: FERROUS SULFATE (325 MG) 325 MG/TAB TABLET PO SCH ×2 (11:29→16:26)
[2019-04-15] MEDS: DIVALPROEX SODIUM 125 MG CAP.SPRINK PO SCH ×3 (11:29→16:26)
[2019-04-15] MEDS: ISOSORBIDE MONONITRATE (30MG) 30 MG TAB.SR.24H PO SCH (11:30)
[2019-04-15] MEDS: HYDROCHLOROTHIAZIDE 25 MG TABLET PO SCH (11:30)
[2019-04-15] MEDS: AMLODIPINE BESYLATE 10 MG TABLET PO SCH (11:33)
[2019-04-15] MEDS: INSULIN REGULAR, HUMAN 100 UNIT/ML 3 ML VIAL SQ PRN ×3 (12:32→21:57)
[2019-04-15] MEDS: ACETAMINOPHEN 325 MG TABLET PO PRN ×3 (12:36→21:13)
[2019-04-15] MEDS: DULOXETINE HCL 30 MG CAPSULE.DR PO SCH (12:36)
[2019-04-15 16:00] VITALS: BP 104/55
[2019-04-15 19:53] VITALS: BP 95/49
[2019-04-15] MEDS: DONEPEZIL 5 MG TABLET PO SCH (21:29)
[2019-04-15] MEDS: MONTELUKAST SODIUM (10MG) 10 MG TABLET PO SCH (21:29)
[2019-04-15] MEDS: ATORVASTATIN 40 MG TABLET PO SCH (21:29)
[2019-04-15] MEDS: INSULIN GLARGINE, 100 UNIT/ML CARTRIDGE SQ SCH (21:53)
[2019-04-15] MEDS: TEMAZEPAM 7.5 MG CAPSULE PO PRN (21:59)
[2019-04-15 22:10] VITALS: BP 102/59
[2019-04-16] MEDS: BLOOD SUGAR DIAGNOSTIC 1 EACH STRIP IN SCH ×6 (07:38→21:56)
[2019-04-16] MEDS: INSULIN REGULAR, HUMAN 100 UNIT/ML 3 ML VIAL SQ PRN ×4 (07:38→22:12)
[2019-04-16 08:00] VITALS: BP 116/63
[2019-04-16] MEDS: ASPIRIN 81 MG TAB.CHEW PO SCH (09:27)
[2019-04-16] MEDS: HYDROCHLOROTHIAZIDE 25 MG TABLET PO SCH (09:27)
[2019-04-16] MEDS: FERROUS SULFATE (325 MG) 325 MG/TAB TABLET PO SCH ×2 (09:27→16:15)
[2019-04-16] MEDS: DIVALPROEX SODIUM 125 MG CAP.SPRINK PO SCH ×3 (09:27→16:15)
[2019-04-16] MEDS: PANTOPRAZOLE 40 MG TABLET.DR PO SCH ×2 (09:27→21:35)
[2019-04-16] MEDS: MEMANTINE HCL 5 MG TABLET PO SCH (09:28)
[2019-04-16] MEDS: glyBURIDE 5 MG TABLET PO SCH (09:28)
[2019-04-16] MEDS: AMLODIPINE BESYLATE 10 MG TABLET PO SCH (09:28)
[2019-04-16] MEDS: GABAPENTIN 400 MG CAPSULE PO SCH ×3 (09:28→16:15)
[2019-04-16] MEDS: METOPROLOL SUCCINATE 25 MG TAB.SR.24H PO SCH (09:29)
[2019-04-16] MEDS: LEVOTHYROXINE SODIUM 75 MCG TABLET PO SCH (09:29)
[2019-04-16] MEDS: MESALAMINE 400 MG CAP PO SCH ×3 (09:29→16:15)
[2019-04-16] MEDS: BUDESONIDE 3 MG CAP.SR.24H PO SCH (09:32)
[2019-04-16] MEDS: ISOSORBIDE MONONITRATE (30MG) 30 MG TAB.SR.24H PO SCH (09:48)
[2019-04-16] MEDS ORDERED: ARIPIPRAZOLE 2 MG TABLET PO SCH (10:00)
[2019-04-16] MEDS: DULOXETINE HCL 30 MG CAPSULE.DR PO SCH (12:27)
[2019-04-16] MEDS: LORAZEPAM 0.5 MG TABLET PO PRN (14:19)
[2019-04-16 16:00] VITALS: BP 143/76
[2019-04-16 20:37] VITALS: BP 98/53
[2019-04-16] MEDS: ATORVASTATIN 40 MG TABLET PO SCH (21:34)
[2019-04-16] MEDS: DONEPEZIL 5 MG TABLET PO SCH (21:35)
[2019-04-16] MEDS: ARIPIPRAZOLE 2 MG TABLET PO SCH (21:35)
[2019-04-16] MEDS: MONTELUKAST SODIUM (10MG) 10 MG TABLET PO SCH (21:35)
[2019-04-16] MEDS: TEMAZEPAM 7.5 MG CAPSULE PO PRN (21:56)
[2019-04-16] MEDS: INSULIN GLARGINE, 100 UNIT/ML CARTRIDGE SQ SCH (22:11)
[2019-04-17] MEDS: ACETAMINOPHEN 325 MG TABLET PO PRN ×3 (03:06→20:04)
[2019-04-17 08:00] VITALS: BP 103/63
[2019-04-17] MEDS: BLOOD SUGAR DIAGNOSTIC 1 EACH STRIP IN SCH ×4 (08:15→21:28)
[2019-04-17] MEDS: PANTOPRAZOLE 40 MG TABLET.DR PO SCH ×2 (08:20→20:56)
[2019-04-17] MEDS: LEVOTHYROXINE SODIUM 75 MCG TABLET PO SCH (08:20)
[2019-04-17] MEDS: METOPROLOL SUCCINATE 25 MG TAB.SR.24H PO SCH (08:20)
[2019-04-17] MEDS: ASPIRIN 81 MG TAB.CHEW PO SCH (08:20)
[2019-04-17] MEDS: GABAPENTIN 400 MG CAPSULE PO SCH ×3 (08:21→16:15)
[2019-04-17] MEDS: DIVALPROEX SODIUM 125 MG CAP.SPRINK PO SCH ×3 (08:21→16:14)
[2019-04-17] MEDS: FERROUS SULFATE (325 MG) 325 MG/TAB TABLET PO SCH ×2 (08:23→16:15)
[2019-04-17] MEDS: ISOSORBIDE MONONITRATE (30MG) 30 MG TAB.SR.24H PO SCH (08:23)
[2019-04-17] MEDS: MEMANTINE HCL 5 MG TABLET PO SCH (08:24)
[2019-04-17] MEDS: MESALAMINE 400 MG CAP PO SCH ×3 (08:24→16:14)
[2019-04-17] MEDS: glyBURIDE 5 MG TABLET PO SCH (08:25)
[2019-04-17] MEDS: ARIPIPRAZOLE 2 MG TABLET PO SCH ×2 (08:25→21:04)
[2019-04-17] MEDS: HYDROCHLOROTHIAZIDE 25 MG TABLET PO SCH (08:26)
[2019-04-17] MEDS: AMLODIPINE BESYLATE 10 MG TABLET PO SCH (08:27)
[2019-04-17] MEDS: BUDESONIDE 3 MG CAP.SR.24H PO SCH (08:28)
[2019-04-17] MEDS: INSULIN REGULAR, HUMAN 100 UNIT/ML 3 ML VIAL SQ PRN ×4 (08:30→21:30)
[2019-04-17] MEDS: MINERAL OIL/PETROLATUM,WHITE 120 GM JAR TP SCH (12:30)
[2019-04-17] MEDS: DULOXETINE HCL 30 MG CAPSULE.DR PO SCH (12:35)
[2019-04-17 16:00] VITALS: BP 121/66
[2019-04-17] MEDS: LORAZEPAM 0.5 MG TABLET PO PRN (18:24)
[2019-04-17 20:00] VITALS: BP 113/54
[2019-04-17] MEDS: MONTELUKAST SODIUM (10MG) 10 MG TABLET PO SCH (21:04)
[2019-04-17] MEDS: ATORVASTATIN 40 MG TABLET PO SCH (21:04)
[2019-04-17] MEDS: DONEPEZIL 5 MG TABLET PO SCH (21:04)
[2019-04-17] MEDS: INSULIN GLARGINE, 100 UNIT/ML CARTRIDGE SQ SCH (21:29)
[2019-04-18 07:04] LABS: BASOPHILS # (AUTO) 0.1 /CMM (0.0-0.2); BASOPHILS % (AUTO) 0.8 % (0.0-2.0); EOSINOPHILS % (AUTO) 1.8 % (0.0-6.0); HEMATOCRIT 33 % (33-45); HEMOGLOBIN 10.6 g/dL (11.5-14.8); LYMPHOCYTES # (AUTO) 3.1 /CMM (0.8-4.8); LYMPHOCYTES % (AUTO) 39.4 % (20.0-44.0); MEAN CORPUSCULAR HGB CONC 33 g/dl (31.0-36.0); MEAN CORPUSCULAR VOLUME 86 fL (82-100); MONOCYTES # (AUTO) 0.8 /CMM (0.1-1.30); MONOCYTES % (AUTO) 10.2 % (2.0-12.0); NEUTROPHILS # (AUTO) 3.7 /CMM (1.8-8.9); NEUTROPHILS % (AUTO) 47.8 % (43.0-81.0); PLATELET COUNT (AUTO) 376 /CMM (150-450); RED BLOOD CELL COUNT(AUTO) 3.82 MIL/uL (4.0-5.2); WHITE BLOOD COUNT (AUTO) 7.8 K/uL (4.3-11.0)
[2019-04-18 07:35] LABS: ALANINE AMINOTRANSFERASE 16 U/L (12-78); ALBUMIN 2.7 g/dL (3.4-5.0); ALKALINE PHOSPHATASE 93 U/L (46-116); ASPARTATE AMINOTRANSFERASE 14 U/L (15-37); BILIRUBIN,TOTAL 0.2 mg/dL (0.2-1.0); CALCIUM, SERUM 9.7 mg/dL (8.5-10.1); CARBON DIOXIDE 27 mmol/L (21-32); CHLORIDE 105 mmol/L (98-107); CREATININE 0.9 mg/dL (0.6-1.3); GLUCOSE 89 mg/dL (74-106); POTASSIUM 3.6 mmol/L (3.5-5.1); SODIUM SERUM 142 mmol/L (136-145); TOTAL PROTEIN, SERUM 6.4 g/dL (6.4-8.2); UREA NITROGEN, BLOOD 36 mg/dL (7-18)
[2019-04-18 08:00] VITALS: BP 105/59
[2019-04-18 08:03] LABS: VALPROIC ACID 20 ug/mL (50-100)
[2019-04-18] MEDS: ASPIRIN 81 MG TAB.CHEW PO SCH (08:16)
[2019-04-18] MEDS: MEMANTINE HCL 5 MG TABLET PO SCH (08:16)
[2019-04-18] MEDS: BLOOD SUGAR DIAGNOSTIC 1 EACH STRIP IN SCH ×2 (08:16→11:42)
[2019-04-18] MEDS: glyBURIDE 5 MG TABLET PO SCH (08:17)
[2019-04-18] MEDS: ARIPIPRAZOLE 2 MG TABLET PO SCH (08:17)
[2019-04-18] MEDS: MESALAMINE 400 MG CAP PO SCH ×2 (08:17→12:01)
[2019-04-18] MEDS: DIVALPROEX SODIUM 125 MG CAP.SPRINK PO SCH ×2 (08:17→12:06)
[2019-04-18] MEDS: FERROUS SULFATE (325 MG) 325 MG/TAB TABLET PO SCH (08:18)
[2019-04-18] MEDS: PANTOPRAZOLE 40 MG TABLET.DR PO SCH (08:19)
[2019-04-18] MEDS: GABAPENTIN 400 MG CAPSULE PO SCH ×2 (08:19→12:01)
[2019-04-18] MEDS: LEVOTHYROXINE SODIUM 75 MCG TABLET PO SCH (08:19)
[2019-04-18] MEDS: BUDESONIDE 3 MG CAP.SR.24H PO SCH (08:20)
[2019-04-18] MEDS: MINERAL OIL/PETROLATUM,WHITE 120 GM JAR TP SCH (08:21)
[2019-04-18 09:00] VITALS: BP 105/59
[2019-04-18] MEDS: METOPROLOL SUCCINATE 25 MG TAB.SR.24H PO SCH (09:00)
[2019-04-18] MEDS: HYDROCHLOROTHIAZIDE 25 MG TABLET PO SCH (09:00)
[2019-04-18] MEDS: ISOSORBIDE MONONITRATE (30MG) 30 MG TAB.SR.24H PO SCH (09:00)
[2019-04-18] MEDS: AMLODIPINE BESYLATE 10 MG TABLET PO SCH (09:00)
[2019-04-18] MEDS: ACETAMINOPHEN 325 MG TABLET PO PRN (10:07)
[2019-04-18] MEDS: INSULIN REGULAR, HUMAN 100 UNIT/ML 3 ML VIAL SQ PRN ×2 (10:33→12:05)
[2019-04-18] MEDS: DULOXETINE HCL 30 MG CAPSULE.DR PO SCH (12:01)
[2019-04-18] MEDS: LORAZEPAM 0.5 MG TABLET PO PRN (13:23)
== END 2019-04-18 14:10 | disposition home or self-care (01) | DRG 885 ==
LOC: GPS 13:26
PROVIDERS: ADMIT Psychiatry & Neurology Psychosomatic Medicine; ATTEND Hospitalist
DX: F31.9 Bipolar disorder, unspecified (principal); F01.50 Vascular dementia, unspecified severity, without behavioral disturbance, psychotic disturbance, mood disturbance, and anxiety; E11.65 Type 2 diabetes mellitus with hyperglycemia; G92 Toxic encephalopathy; N39.0 Urinary tract infection, site not specified; E44.1 Mild protein-calorie malnutrition; F29 Unspecified psychosis not due to a substance or known physiological condition; F41.9 Anxiety disorder, unspecified; F19.90 Other psychoactive substance use, unspecified, uncomplicated; F41.0 Panic disorder [episodic paroxysmal anxiety]; T50.901D Poisoning by unspecified drugs, medicaments and biological substances, accidental (unintentional), subsequent encounter; Z91.5 Personal history of self-harm; Z82.49 Family history of ischemic heart disease and other diseases of the circulatory system; K21.9 Gastro-esophageal reflux disease without esophagitis; G30.9 Alzheimer's disease, unspecified; F02.80 Dementia in other diseases classified elsewhere, unspecified severity, without behavioral disturbance, psychotic disturbance, mood disturbance, and anxiety; E78.5 Hyperlipidemia, unspecified; I10 Essential (primary) hypertension; G89.29 Other chronic pain; K58.9 Irritable bowel syndrome, unspecified; M79.7 Fibromyalgia; M06.9 Rheumatoid arthritis, unspecified; Z96.649 Presence of unspecified artificial hip joint
CPT/HCPCS: 36415; 80053-TC; 80061-TC; 80164-TC; 82962-TC; 85025-TC; 87081-TC; J1815

== ENCOUNTER 2019-09-11 19:46 | Inpatient (IN) | payer BC, OTHER ==
[~2019-09-11] VITALS: Ht 162.6 cm; Wt 65.8 kg
[~2019-09-11 19:46] MED LIST changes: -BUPR-96 PO; -BUTA-247 PO; -CYCL10TA9 PO; -HYDR-4384 PO; -OMEP20CA10 PO; +OMEP20CA11 PO
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
--- NOTE | 2019-09-11 20:00 | NUR ---
AT BEDSIDE FOR EVAL.
[2019-09-11] MEDS ORDERED: HYDROCODONE/APAP 5/325MG 1 EACH TABLET ONE (20:19)
--- NOTE | 2019-09-11 20:20 | NUR ---
IV LINE ESTABLISHED BLOOD DRAWN AND SENT TO LAB.
[2019-09-11 20:30] LABS: BASOPHILS # (AUTO) 0.1 /CMM (0.0-0.2); BASOPHILS % (AUTO) 0.8 % (0.0-2.0); EOSINOPHILS % (AUTO) 1.3 % (0.0-6.0); HEMATOCRIT 36 % (33-45); HEMOGLOBIN 11.4 g/dL (11.5-14.8); LYMPHOCYTES # (AUTO) 1.9 /CMM (0.8-4.8); LYMPHOCYTES % (AUTO) 15.4 % (20.0-44.0); MEAN CORPUSCULAR HGB CONC 32 g/dl (31.0-36.0); MEAN CORPUSCULAR VOLUME 78 fL (82-100); MONOCYTES # (AUTO) 1.2 /CMM (0.1-1.30); NEUTROPHILS % (AUTO) 72.5 % (43.0-81.0); PLATELET COUNT (AUTO) 356 /CMM (150-450); RED BLOOD CELL COUNT(AUTO) 4.68 MIL/uL (4.0-5.2); WHITE BLOOD COUNT (AUTO) 12.4 K/uL (4.3-11.0)
[2019-09-11] MEDS ORDERED: IV NS 0.9% 1,000 ML BAG IV ONE (20:30)
[2019-09-11] MEDS ORDERED: HYDROCODONE/APAP 5/325MG 1 EACH TABLET PO ONE (20:30)
--- NOTE | 2019-09-11 20:42 | NUR ---
PT IS WHEELED TO CT SCAN VIA [facility].
[2019-09-11] MEDS ORDERED: LEVETIRACETAM (500MG) 500 MG in IV NS 0.9% 100 ML IV SCH ×2 (21:00→22:00)
[2019-09-11 21:04] LABS: CALCIUM, SERUM 9.7 mg/dL (8.5-10.1); CARBON DIOXIDE 29 mmol/L (21-32); CHLORIDE 98 mmol/L (98-107); CREATININE 1.4 mg/dL (0.6-1.3); GLUCOSE 326 mg/dL (74-106); POTASSIUM 3.6 mmol/L (3.5-5.1); SODIUM SERUM 132 mmol/L (136-145); UREA NITROGEN, BLOOD 27 mg/dL (7-18)
[2019-09-11] MEDS ORDERED: LEVETIRACETAM (500MG) 500 MG/5 ML VIAL IV ONE ×2 (21:06→21:38)
[2019-09-11 21:10] LABS: ALANINE AMINOTRANSFERASE 17 U/L (12-78); ALBUMIN 2.9 g/dL (3.4-5.0); ALKALINE PHOSPHATASE 120 U/L (46-116); ASPARTATE AMINOTRANSFERASE 16 U/L (15-37); BILIRUBIN,TOTAL 0.2 mg/dL (0.2-1.0); TOTAL PROTEIN, SERUM 6.6 g/dL (6.4-8.2)
--- NOTE | 2019-09-11 21:40 | NUR ---
ANGELO FRIED DNP AT BEDSIDE FOR EVAL
[2019-09-11] MEDS ORDERED: MAGNESIUM HYDROXIDE 30 ML UDC PO PRN (22:00)
[2019-09-11] MEDS ORDERED: LORAZEPAM INJ 2 MG/ML VIAL IV PRN (22:00)
[2019-09-11] MEDS ORDERED: ZOLPIDEM TARTRATE 5 MG TABLET PO PRN (22:00)
[2019-09-11] MEDS ORDERED: LORAZEPAM INJ 2 MG/ML VIAL IV ONE (22:00)
[2019-09-11] MEDS ORDERED: HYDROCODONE/APAP 5/325MG 1 EACH TABLET PO PRN (22:00)
[2019-09-11] MEDS ORDERED: MAG HYDROX/AL HYDROX/SIMETH 30 ML UDC PO PRN (22:00)
[2019-09-11] MEDS ORDERED: ONDANSETRON HCL/PF 4 MG/2 ML VIAL IVP PRN (22:00)
[2019-09-11] MEDS: LEVETIRACETAM (500MG) 500 MG in IV NS 0.9% 100 ML IV SCH (22:00)
[2019-09-11] MEDS ORDERED: ACETAMINOPHEN 325 MG TABLET PO PRN (22:00)
[2019-09-11] MEDS ORDERED: MORPHINE SULFATE INJ 2 MG/ML DISP.SYRIN IV PRN (22:00)
[2019-09-11] MEDS ORDERED: LIDOCAINE 1%-EPI 1:100,000 20 ML VIAL ONE (22:01)
--- NOTE | 2019-09-11 22:25 | NUR ---
NURSING SUP GAVE ICU BED 258.
--- NOTE | 2019-09-11 22:52 | NUR ---
REPORT GIVEN TO CARLA GORE FOR SARAH.
[2019-09-11] MEDS ORDERED: DEXTROSE 50%-WATER 50 ML DISP.SYRIN IV PRN (23:00)
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
[2019-09-12] VITALS (19 sets, daily range): BP systolic 87–120; BP diastolic 35–68
--- NOTE | 2019-09-12 | NUR ---
TISSUE INSERTER. RT NEXT TO THE EYE LACERATION. 3 STITCHES DONE IN THE ER
[2019-09-12] MEDS: IV NS 0.9% 1,000 ML IV PRN (00:24)
--- NOTE | 2019-09-12 00:38 | NUR ---
WHEAT FARMER. 2200 KEPPRA GIVEN FROM ER
[2019-09-12] MEDS ORDERED: hydrALAZINE HCL IV 20 MG VIAL IV PRN (01:30)
--- NOTE | 2019-09-12 01:59 | NUR ---
HOUSE MOVER HELPER. ADMISSION. RECEIVED THE PT FROM ER VIS WILIAM PT AWAKE, ALERT FOLLOW COMMANDS. CIVIL ENGINEERING MANAGER SHOWING NSR. PT ON ROOM AIR. SAT 98%. NO ACUTE DISTRESS NOTED. MULTIPLE FACE , CHIN FORE HEAD LACERATION, REDNESS AND BRUISE NOTED, PICTURE TAKEN AND PLACED IN THE CHART.WILL CONTINUE TO MONITOR VITALS.
--- NOTE | 2019-09-12 03:06 | NUR ---
CLOTH DESIZING RANGE OPERATOR CHIEF AM CARE. ORAL CARE, BED BATH GIVEN. LINEN CHANGED. REMAINING SAME IVF RUNNING, ASSISTANT PROFESSOR OF ECONOMICS SHOWING NSR, IIV RT AND LT HAND, IVF NS 75 ML/H. HOB ELEVATED 30aNKLE. PT IS NPO. WILL CONTINUE TO MONITOR VITALS
[2019-09-12 04:30] LABS: BASOPHILS # (AUTO) 0.1 /CMM (0.0-0.2); EOSINOPHILS % (AUTO) 1.9 % (0.0-6.0); HEMATOCRIT 33 % (33-45); HEMOGLOBIN 10.6 g/dL (11.5-14.8); LYMPHOCYTES # (AUTO) 3.1 /CMM (0.8-4.8); LYMPHOCYTES % (AUTO) 30.1 % (20.0-44.0); MEAN CORPUSCULAR HGB CONC 32 g/dl (31.0-36.0); MEAN CORPUSCULAR VOLUME 78 fL (82-100); MONOCYTES # (AUTO) 1.2 /CMM (0.1-1.30); MONOCYTES % (AUTO) 11.3 % (2.0-12.0); NEUTROPHILS # (AUTO) 5.8 /CMM (1.8-8.9); NEUTROPHILS % (AUTO) 55.7 % (43.0-81.0); PLATELET COUNT (AUTO) 309 /CMM (150-450); RED BLOOD CELL COUNT(AUTO) 4.22 MIL/uL (4.0-5.2); WHITE BLOOD COUNT (AUTO) 10.4 K/uL (4.3-11.0)
[2019-09-12 04:46] LABS: CALCIUM, SERUM 9.1 mg/dL (8.5-10.1); CREATININE 1.2 mg/dL (0.6-1.3); MAGNESIUM 1.6 mg/dL (1.8-2.4); PHOSPHORUS 3.1 mg/dL (2.5-4.9); POTASSIUM 3.2 mmol/L (3.5-5.1)
[2019-09-12 05:23] LABS: THYROID STIMULATING HORMONE 0.45 uIU/mL (0.358-3.74)
[2019-09-12] MEDS: BLOOD SUGAR DIAGNOSTIC 1 EACH STRIP IN SCH ×4 (07:30→22:07)
--- NOTE | 2019-09-12 08:00 | NUR ---
patient recieved, alert and oriented x 3. in no acute distress. loc-pertl, bilat. voiding clear yellow urine on bedpan.
[2019-09-12] MEDS: INSULIN REGULAR, HUMAN 100 UNIT/ML 3 ML VIAL SQ PRN ×3 (08:47→22:24)
[2019-09-12] MEDS ORDERED: LEVETIRACETAM (500MG) 250 MG in IV NS 0.9% 100 ML IV SCH (09:00)
[2019-09-12] MEDS: LEVETIRACETAM (500MG) 500 MG in IV NS 0.9% 100 ML IV SCH ×2 (09:04→23:29)
[2019-09-12] MEDS: PANTOPRAZOLE 40 MG VIAL IV SCH (09:04)
[2019-09-12] MEDS: POTASSIUM CL. PREMIX PERIPHER. 50 ML IV SCH ×4 (10:59→17:31)
[2019-09-12] MEDS ORDERED: DIPHENOXYLATE HCL/ATROP SULF 1 UDTAB TABLET PO PRN (11:30)
[2019-09-12] MEDS ORDERED: ONDANSETRON 4 MG TAB.RAPDIS PO PRN (11:30)
[2019-09-12] MEDS ORDERED: TRAMADOL HCL 50 MG TABLET PO PRN (11:30)
--- NOTE | 2019-09-12 12:07 | NUR ---
LAST DIPPER RECEIVING RECEIVED BEDSIDE REPORT FROM CARLA MASTERS FROM ICU. PATIENT IS AWAKE, VERBAL, A/Ox3, BUT FORGETFUL AT TIMES. PATIENT COMPLAINS OF HEADACHE. ADMIN DIR STRENGTH AND SHOULDER SHRUG EQUAL, PUPILS REACTIVE EQUALLY TO LIGHT. ON ROOM AIR, NO RESPIRATORY DISTRESS. TELE MONITOR ATTACHED. SINUS RHYTHM HR 72. NOTED BRUISING ON RIGHT SIDE OF FACE. ACCUCHECK 145, NO INSULIN GIVEN DUE TO NPO STATUS. R FA 20G IV C/D/I, INFUSING POTASSIUM ORDERED. WILL CONT TO MONITOR NEURO STATUS. BED ALARM ON, CALL LIGHT WITHIN REACH
--- NOTE | 2019-09-12 12:10 | NUR ---
PT TRANSFERRED TO 116-2 PER BED ON MONITOR. REPORT GIVEN TO CARLA MORIN. LOC- PERTL 2MM, BRISK. ALERT TO PERSON PLACE BUT FORGETFUL TO TIME. PT PULLED OUT HEPLOCK ON LEFT FOREARM. POTASSIUM RUNNING ORDERED.
[2019-09-12] MEDS: GABAPENTIN 400 MG CAPSULE PO SCH ×3 (12:55→18:48)
[2019-09-12] MEDS: MESALAMINE 400 MG CAP PO SCH ×2 (13:00→18:48)
[2019-09-12] MEDS: Magnesium 1GM/D5W 100ML PREMIX 100 ML IV SCH ×2 (18:48→22:05)
[2019-09-12] MEDS: FERROUS SULFATE (325 MG) 325 MG/TAB TABLET PO SCH (18:48)
--- NOTE | 2019-09-12 19:00 | NUR ---
SNOW PLOW TRACTOR OPERATOR CLOSING PATIENT REMAINS A/Ox2-3, AT TIMES FORGETFUL. AWAKE, VERBAL. ON ROOM AIR. NO S/S BLEEDING OR STROKE NOTED. ATE DINNER. CALL LIGHT WITHIN REACH, BED ALARM ON
[2019-09-12] MEDS ORDERED: DULOXETINE HCL 30 MG CAPSULE.DR PO SCH (21:00)
--- NOTE | 2019-09-12 21:55 | NUR ---
2155 DR MORALES AT BEDSIDE AND EXAMINED PATIENT WITH ORDER TO GIVE BENADRYL 25MG PO ONCE, ORDER NOTED.
[2019-09-12] MEDS ORDERED: ATORVASTATIN 40 MG TABLET PO SCH (22:00)
[2019-09-12] MEDS ORDERED: DONEPEZIL 5 MG TABLET PO SCH (22:00)
[2019-09-12] MEDS ORDERED: MONTELUKAST SODIUM (10MG) 10 MG TABLET PO SCH (22:00)
[2019-09-12] MEDS ORDERED: diphenhydrAMINE HCL 25 MG CAPSULE PO ONE (22:00)
[2019-09-12] MEDS ORDERED: LEVETIRACETAM (500MG) 500 MG/5 ML VIAL IV ONE (22:12)
[2019-09-13] VITALS: BP 107/53
[2019-09-13] MEDS: IV NS 0.9% 1,000 ML IV PRN (01:26)
[2019-09-13 04:00] VITALS: BP 103/71
[2019-09-13] MEDS ORDERED: PANTOPRAZOLE 40 MG TABLET.DR PO SCH (07:30)
[2019-09-13] MEDS ORDERED: INSULIN LISPRO/ASPART 100 UNIT/ML CARTRIDGE SQ SCH (07:30)
[2019-09-13] MEDS ORDERED: LEVOTHYROXINE SODIUM 75 MCG TABLET PO SCH (07:30)
[2019-09-13 08:00] VITALS: BP 126/66
[2019-09-13] MEDS: BLOOD SUGAR DIAGNOSTIC 1 EACH STRIP IN SCH ×2 (08:26→11:22)
[2019-09-13] MEDS: GABAPENTIN 400 MG CAPSULE PO SCH ×2 (08:28→13:02)
[2019-09-13] MEDS: FERROUS SULFATE (325 MG) 325 MG/TAB TABLET PO SCH (08:29)
[2019-09-13] MEDS: MESALAMINE 400 MG CAP PO SCH ×2 (08:34→13:01)
[2019-09-13] MEDS: PANTOPRAZOLE 40 MG VIAL IV SCH (08:37)
[2019-09-13] MEDS: INSULIN REGULAR, HUMAN 100 UNIT/ML 3 ML VIAL SQ PRN ×2 (08:44→11:26)
[2019-09-13] MEDS ORDERED: HYDROCHLOROTHIAZIDE 25 MG TABLET PO SCH (09:00)
[2019-09-13] MEDS ORDERED: ASPIRIN 81 MG TAB.CHEW PO SCH (09:00)
[2019-09-13] MEDS ORDERED: MEMANTINE HCL 5 MG TABLET PO SCH (09:00)
[2019-09-13] MEDS ORDERED: METOPROLOL SUCCINATE 25 MG TAB.SR.24H PO SCH (09:00)
[2019-09-13] MEDS ORDERED: AMLODIPINE BESYLATE 10 MG TABLET PO SCH (09:00)
[2019-09-13] MEDS ORDERED: BUDESONIDE 3 MG CAP.SR.24H PO SCH (09:00)
[2019-09-13] MEDS ORDERED: ISOSORBIDE MONONITRATE (30MG) 30 MG TAB.SR.24H PO SCH (09:00)
--- NOTE | 2019-09-13 10:16 | NUR ---
FOREST TECHNICIAN NOTES PT SARAH REPORT RECEIVED FROM CARLA HOLDEN IN [place].RECEIVED PT LYING ON BED.ALERT/ORIENTED X2N WITH CONFUSION.ON TELE HR IS 78 WITH NSR.ON ROOM AIR,TOLERATING WELL.NO SOB AND ACUTE DISTRESS NOTED.IV LINE IS ON RIGHT WRIST G20 WITH IV NS @75MLS/HR IS RUNNING.SITE IS CLEAN,DRY AND INTACT.NO INFILTRATION NOTED.SAFETY IS MAINTAINED AT ALL TIMES,BED ALARM IS ON.CALL LIGHT IS WITHIN REACH.WILL CONTINUE TO MONITOR THE PT CLOSELY.
[2019-09-13] MEDS: LEVETIRACETAM (500MG) 500 MG in IV NS 0.9% 100 ML IV SCH (10:57)
[2019-09-13 12:00] VITALS: BP 101/56
--- NOTE | 2019-09-13 13:45 | NUR ---
DIETISTMACHINE HOOP MAKER NOTES PT IS DISCHARGE TO HOME WITH HER FRIEND,FRANCISCO JAVIER.PHONE [phone].PT IS CLEAN AND DRY.DRESS IS CHANGED.ALL THE BELONGINGS GIVEN AND FORM SIGNED BY THE PT.ALL THE DISCHARGE INSTRUCTIONS,FOLLOW UP APPOINTMENT AND MEDICATIONS HAS DISCUSSED WITH THE CAREGIVER AT BEDSIDE.IV LINE REMOVED FROM RIGHT ARM.NO BLEEDING NOTED.ON ROOM AIR,TOLERATING WELL.ACCOMPANIED WITH PT VIA WHEELCHAIR TO THE PARKING LOT VIA PRIVATE CAR.NO COMPLICATIONS NOTED. Addendum: 09/13/19 at 1607 by DEONNA SAVAGE RN DISCHARGE TIME IS 1545.
--- NOTE | 2019-09-13 14:45 | NUR ---
DIGITAL MARKETING COORDINATOR NOTES SPOKE WITH ,FRIEND ABOUT THE DISCHARGE AND SAID WILL COME AND [employer]ARGET MAN THE PT SOON.
[2019-09-15] MEDS ORDERED: ERGOCALCIFEROL (VITAMIN D 2) 50,000 UNIT CAPSULE PO SCH (11:30)
== END 2019-09-13 15:59 | disposition home or self-care (01) | DRG 85 ==
LOC: ER 19:46 → ICU 23:02 → TELE1 09-12 11:40
PROVIDERS: ADMIT Nurse Practitioner Acute Care; ATTEND Internal Medicine
DX: S06.5X0A Traumatic subdural hemorrhage without loss of consciousness, initial encounter (principal); N17.0 Acute kidney failure with tubular necrosis; G93.41 Metabolic encephalopathy; E44.0 Moderate protein-calorie malnutrition; W18.30XA Fall on same level, unspecified, initial encounter; Y92.89 Other specified places as the place of occurrence of the external cause; R40.2412 Glasgow coma scale score 13-15, at arrival to emergency department; I10 Essential (primary) hypertension; E78.5 Hyperlipidemia, unspecified; K21.9 Gastro-esophageal reflux disease without esophagitis; K58.0 Irritable bowel syndrome with diarrhea; G89.29 Other chronic pain; M54.5 Low back pain; M06.9 Rheumatoid arthritis, unspecified; M79.7 Fibromyalgia; F41.9 Anxiety disorder, unspecified; F31.9 Bipolar disorder, unspecified; Z96.649 Presence of unspecified artificial hip joint; S00.03XA Contusion of scalp, initial encounter; E11.65 Type 2 diabetes mellitus with hyperglycemia; J45.909 Unspecified asthma, uncomplicated; F03.90 Unspecified dementia, unspecified severity, without behavioral disturbance, psychotic disturbance, mood disturbance, and anxiety; Z68.24 Body mass index [BMI] 24.0-24.9, adult
CPT/HCPCS: 36415; 70450-TC; 70486-TC; 72125-TC; 73140-TC; 80048-TC; 80061-TC; 80076-TC; 82962-TC; 83735-TC; 84100-TC; 84443-TC; 85025-TC; 85730-TC; 86850-TC; 87081-TC; 97116-TC; 97530-TC; A6403; C9113; G0378; J1815; J1953; J3475; J3480; J3490; J7030; Q0163

== ENCOUNTER 2020-03-07 17:00 | Inpatient (IN) | payer BC, MEDICARE ==
[~2020-03-07] VITALS: Ht 162.6 cm; Wt 61.2 kg
[~2020-03-07 17:00] MED LIST changes: -ASPI-1169 PO; -OMEP20CA11 PO; +OMEP20CA15 PO
--- NOTE | 2020-03-07 17:10 | NUR ---
PT AMY FROM HOME TO ER BED . PT IS C/O POLYURIA SINCE MONDAY. ALSO C/O GENERALIZED BODYACHE. HX OF DIABETES. PLACED ON MONITOR. STABLE VITALS. AFEBRILE. DENIES CHEST PAIN OR SOB. GOWNED. VSS. AWAITING MD HYATT.
--- NOTE | 2020-03-07 17:18 | NUR ---
DR SAMUELS AT BEDSIDE FOR EVAL.
--- NOTE | 2020-03-07 17:28 | NUR ---
IV LINE STARTED BLOOD DRAWN AND SENT TO LAB.
[2020-03-07] MEDS ORDERED: IV NS 0.9% 1,000 ML BAG IV ONE (17:30)
[2020-03-07 17:34] LABS: BASOPHILS # (AUTO) 0.1 /CMM (0.0-0.2); BASOPHILS % (AUTO) 1.1 % (0.0-2.0); EOSINOPHILS % (AUTO) 1.9 % (0.0-6.0); HEMATOCRIT 42 % (33-45); HEMOGLOBIN 14.3 g/dL (11.5-14.8); LYMPHOCYTES # (AUTO) 2.4 /CMM (0.8-4.8); LYMPHOCYTES % (AUTO) 22.4 % (20.0-44.0); MEAN CORPUSCULAR HGB CONC 34 g/dl (31.0-36.0); MEAN CORPUSCULAR VOLUME 89 fL (82-100); MONOCYTES # (AUTO) 1.2 /CMM (0.1-1.30); MONOCYTES % (AUTO) 11.7 % (2.0-12.0); NEUTROPHILS # (AUTO) 6.7 /CMM (1.8-8.9); NEUTROPHILS % (AUTO) 62.9 % (43.0-81.0); PLATELET COUNT (AUTO) 350 /CMM (150-450); RED BLOOD CELL COUNT(AUTO) 4.68 MIL/uL (4.0-5.2); WHITE BLOOD COUNT (AUTO) 10.7 K/uL (4.3-11.0)
[2020-03-07 17:39] LABS: APPEARANCE,URINE SL CLOUDY (CLEAR); BILIRUBIN,URINE NEGATIVE (NEGATIVE); BLOOD, URINE TRACE-INTA Ery/uL (NEGATIVE); COLOR,URINE YELLOW (YELLOW); KETONES,URINE NEGATIVE (NEGATIVE); LEUKOCYTE ESTERASE ,URINE MODERATE (NEGATIVE); NITRITE, URINE POSITIVE (NEGATIVE); PROTEIN,URINE NEGATIVE (NEGATIVE); UGLUCOSE >=1000 mg/dL (NEGATIVE); UROBILINOGEN,URINE 0.2 EU/dL (0.2)
[2020-03-07 17:47] LABS: BACTERIA,URINE 2+ /HPF (None Seen); RBC,URINE 0-2 /HPF (0-2); SQUAMOUS EPITHELIAL CELL,UR Few /HPF (None Seen); WBC,URINE TOO NUMEROUS TO COUN /HPF (0-3)
[2020-03-07 17:59] LABS: CREATININE 1.3 mg/dL (0.6-1.3)
[2020-03-07 18:01] LABS: POTASSIUM 2.6 mmol/L (3.5-5.1)
--- NOTE | 2020-03-07 19:12 | NUR ---
REPORT GIVEN TO IMPROVEMENT SPEC CARLA CORTEZ FOR SARAH.
[2020-03-07] MEDS ORDERED: CEFTRIAXONE 1 G in IV D5W 50 ML IV STA (19:24)
[2020-03-07] MEDS ORDERED: CEFTRIAXONE 1GM BAG (ER ONLY) 50 ML IV ONE (19:30)
[2020-03-07] MEDS ORDERED: POTASSIUM CHLORIDE 20 MEQ TAB.PRT.SR PO ONE (19:30)
[2020-03-07] MEDS ORDERED: IV NS 0.9% 1,000 ML IV ONE (19:30)
[2020-03-07] MEDS: POTASSIUM CL. PREMIX PERIPHER. 50 ML IV SCH ×3 (19:30→22:36)
--- NOTE | 2020-03-07 19:34 | NUR ---
DR. SAMUELS ON THE PHONE WITH HOSPITALIST, CONNOR DOMÍNGUEZ, [facility]
--- NOTE | 2020-03-07 19:37 | NUR ---
CALLED NURSING SUP FOR BED
--- NOTE | 2020-03-07 19:38 | NUR ---
MD STAUFFER TO GIVE ANTIBIOTIC. NO BLOOD CULTURES REQUIRED.
--- NOTE | 2020-03-07 20:02 | NUR ---
XRAY AT BEDSIDE
--- NOTE | 2020-03-07 21:02 | NUR ---
TELE 325-2
--- NOTE | 2020-03-07 21:30 | NUR ---
CONNOR DOMÍNGUEZ AT BEDSIDE.
--- NOTE | 2020-03-07 21:34 | NUR ---
REPORT GIVEN TO CELSO AGUIRRE FOR SARAH.
[2020-03-07 22:00] VITALS: BP 104/70
--- NOTE | 2020-03-07 22:00 | NUR ---
PRODUCTION SCHEDULER: ADMISSION 74 y/o female admitted for UTI. Patient is A/O x3 forgetful. Skin intact, coccyx blanchable redness, denies pain. Orientation to room, unit, staff. Fall precaution maintained.
--- NOTE | 2020-03-07 22:04 | NUR ---
20MEQ TOTAL OF POTASSIUM CHLORIDE IV ENDORSED TO CELSO AGUIRRE.
[2020-03-07] MEDS ORDERED: ACETAMINOPHEN 325 MG TABLET PO PRN (22:30)
[2020-03-07] MEDS ORDERED: DEXTROSE 50%-WATER 50 ML DISP.SYRIN IV PRN (22:30)
[2020-03-07] MEDS ORDERED: MAGNESIUM HYDROXIDE 30 ML UDC PO PRN (22:30)
[2020-03-07] MEDS ORDERED: Z GUARD REMEDY 2 OZ OINT TP PRN (22:30)
[2020-03-07] MEDS: ZOLPIDEM TARTRATE 5 MG TABLET PO PRN (23:31)
[2020-03-08] VITALS (8 sets, daily range): BP systolic 98–122; BP diastolic 42–64
[2020-03-08] MEDS: POTASSIUM CL. PREMIX PERIPHER. 50 ML IV SCH (00:12)
--- NOTE | 2020-03-08 06:22 | NUR ---
GLAZIER STRUCTURAL GLASS: END OF SHIFT REPORT Patient in bed, stable Oxygen saturation on room air. Sinus rhythm in the Tele monitor. Low Potassium, replaced IV. Patient forgetful at times, oriented frequently. Denies pain, slept well with PRN Ambien. IV antibiotic as scheduled, afebrile overnight. Fall precaution maintained.
[2020-03-08] MEDS: INSULIN REGULAR, HUMAN 100 UNIT/ML 3 ML VIAL SQ PRN ×4 (06:29→22:06)
[2020-03-08] MEDS: BLOOD SUGAR DIAGNOSTIC 1 EACH STRIP IN SCH ×4 (06:30→22:05)
[2020-03-08 07:54] LABS: BASOPHILS # (AUTO) 0.1 /CMM (0.0-0.2); BASOPHILS % (AUTO) 0.7 % (0.0-2.0); EOSINOPHILS % (AUTO) 3.7 % (0.0-6.0); HEMATOCRIT 35 % (33-45); HEMOGLOBIN 11.8 g/dL (11.5-14.8); LYMPHOCYTES # (AUTO) 2.1 /CMM (0.8-4.8); LYMPHOCYTES % (AUTO) 28.1 % (20.0-44.0); MEAN CORPUSCULAR HGB CONC 34 g/dl (31.0-36.0); MEAN CORPUSCULAR VOLUME 90 fL (82-100); MONOCYTES # (AUTO) 0.8 /CMM (0.1-1.30); MONOCYTES % (AUTO) 10.5 % (2.0-12.0); NEUTROPHILS # (AUTO) 4.3 /CMM (1.8-8.9); PLATELET COUNT (AUTO) 287 /CMM (150-450); WHITE BLOOD COUNT (AUTO) 7.6 K/uL (4.3-11.0)
[2020-03-08 08:14] LABS: CALCIUM, SERUM 8.9 mg/dL (8.5-10.1); CREATININE 0.9 mg/dL (0.6-1.3); MAGNESIUM 1.7 mg/dL (1.8-2.4); PHOSPHORUS 1.6 mg/dL (2.5-4.9); POTASSIUM 3.5 mmol/L (3.5-5.1)
[2020-03-08] MEDS: ONDANSETRON HCL/PF 4 MG/2 ML VIAL IVP PRN (08:32)
--- NOTE | 2020-03-08 08:47 | NUR ---
PAGED DR STOCK NOTIFIED TO [facility]. MD ACKNOWLEDGE RECEIPT OF NOTIFICATION. AWAITING ORDERS.
--- NOTE | 2020-03-08 09:27 | NUR ---
PAGED FOR ORDERS RE PT COMPLAINT OF ANXIETY. ORDERS RECEIVED, WILL CARRY OUT.
[2020-03-08] MEDS: LORAZEPAM 1 MG TABLET PO PRN (09:38)
--- NOTE | 2020-03-08 10:37 | NUR ---
PT RECEIVED RESTING COMFORTABLY IN BED. NO S/S OR C/O PAIN OR DISTRESS NOTED. SIDE RAILS UP X2, CALL LIGHT LEFT WITHIN REACH. WILL CONTINUE PLAN OF CARE. Addendum: 03/08/20 at 1038 by SANTY BERNARD RN TIME [id number]
[2020-03-08] MEDS: Magnesium 1GM/D5W 100ML PREMIX 100 ML IV SCH ×2 (10:51→11:46)
[2020-03-08] MEDS ORDERED: K PHOS NEUTRAL 250 MG TABLET PO ONE (15:30)
--- NOTE | 2020-03-08 16:52 | NUR ---
RN NOTES RECEIVED FROM CARLA/SANTY AT 1650. PT IN BED, AWAKE, A/O X2-3. TOLERATING RA, WITH NO ACUTE RESPIRATORY DISTRESS. PT DENIES ANY PAIN OR DISCOMFORT AT THIS TIME. PT KEPT COMFORTABLE. HOB ELEVATED. CALL LIGHT KEPT WITHIN REACH. PT'S BED IN LOWEST, LOCKED POSITION WITH SR X3. WILL CONTINUE PLAN OF CARE.
--- NOTE | 2020-03-08 18:47 | NUR ---
CHANGE OF SHIFT REPORT PT RESTING COMFORTABLY IN BED WITH EYES CLOSED. NO S/S OR C/O PAIN OR DISTRESS NOTED. SIDE RAILS UP X2, CALL LIGHT LEFT WITHIN REACH. PT KEPT CLEAN, DRY, AND COMFORTABLE. NO SIGNIFICANT CHANGES SINCE PREVIOUS SHIFT. Addendum: 03/08/20 at 1847 by SANTY BERNARD RN WRONG PATIENT
--- NOTE | 2020-03-08 19:07 | NUR ---
MEMBERSHIP ASSISTANT CLOSING NOTES PT REMAINS IN BED, AWAKE, A/O X3. PT TOLERATING RA, WITH NO ACUTE RESPIRATORY DISTRESS NOTED. PT ON TELEMONITORING WITH SR HR 85. PIV TO R WRIST G20, FLUSHED WITH NS, INTACT AND OPERATIONAL. PT KEPT COMFORTABLE IN BED. HOB ELEVATED. ALL NEEDS AND CARE ATTENDED. CALL LIGHT KEPT WITHIN REACH. PT'S BED IN LOWEST, LOCKED POSITION WITH SRX3. WILL ENDORSE TO INCOMING NIGHT NURSE FOR SARAH.
--- NOTE | 2020-03-08 19:30 | NUR ---
PACKAGE HANDLER OPENING NOTES RECEIVED PATIENT IN BED ALERT AND ORIENTED X 3 FORGETFUL. VERBALLY RESPONSIVE AND ABLE TO FOLLOW DIRECTIONS. BREATHING REGULAR AND UNLABORED ON ROOM AIR. RIGHT WRIST G20 IV LINE INTACT AND PATENT, FLUSHING WELL WITH NO BLEEDING OR S/S OF INFILTRATION NOTED. ON CARDIAC MONITORING WITH NSR AT 78bpm. DENIES ANY SUICIDAL IDEATION AT THIS TIME, NO COMPLAINTS OF PAIN/DISCOMFORT REPORTED. BED LOW AND LOCKED ON SEMI FOWLERS POSITION. CALL LIGHT IN REACH. WILL CONTINUE TO MONITOR.
[2020-03-08] MEDS: CEFTRIAXONE 1 G in IV D5W 50 ML IV SCH (19:57)
--- NOTE | 2020-03-08 22:15 | NUR ---
COSMETIC MAKER NOTES BS 241mg/dl, 4UNITS REGULAR INSULIN GIVEN SQ. SNACK PROVIDED ON BEDSIDE. WILL CONTINUE TO MONITOR.
--- NOTE | 2020-03-08 22:30 | NUR ---
MS RN NOTES SEEN AND EXAMINED BY [facility] DOMÍNGUEZ WITH ORDERS TO DISCONTINUE TELE MONITORING NOTED AND CARRIED OUT.
--- NOTE | 2020-03-09 06:25 | NUR ---
MS RN CLOSING NOTES PATIENT IN BED ALERT AND ORIENTED X 3 FORGETFUL. VERBALLY RESPONSIVE AND ABLE TO FOLLOW DIRECTIONS. BREATHING REGULAR AND UNLABORED ON ROOM AIR. RIGHT WRIST G20 IV LINE PATENT AND FLUSHING WELL. NO COMPLAINTS OF PAIN/DISCOMFORT REPORTED THE WHOLE SHIFT. BED LOW AND LOCKED ON SEMI FOWLERS POSITION. CALL LIGHT IN REACH. WILL ENDORSE TO MORNING SHIFT FOR SARAH.
[2020-03-09] MEDS: BLOOD SUGAR DIAGNOSTIC 1 EACH STRIP IN SCH ×4 (06:33→22:12)
[2020-03-09] MEDS: INSULIN REGULAR, HUMAN 100 UNIT/ML 3 ML VIAL SQ PRN ×4 (06:34→22:15)
--- NOTE | 2020-03-09 07:30 | NUR ---
MS/RN Opening note Received patient AO x 2-3, forgetful, able to responds all stimuli. Denies pain or any discomfort. Skin is warm to touch, clean/dry. Respiratory even and unlabored with room air. No s/s of IV ATB adverse reaction observed, kept lower position of the bed with locked wheel for safety, call light within reach, will continue to monitor.
[2020-03-09 08:00] VITALS: BP_SYST 104; BP_SYST 117; BP_DIAS 63; BP_DIAS 69
[2020-03-09 08:40] LABS: BASOPHILS # (AUTO) 0.1 /CMM (0.0-0.2); BASOPHILS % (AUTO) 0.7 % (0.0-2.0); HEMATOCRIT 40 % (33-45); HEMOGLOBIN 12.8 g/dL (11.5-14.8); LYMPHOCYTES # (AUTO) 2.3 /CMM (0.8-4.8); LYMPHOCYTES % (AUTO) 27.8 % (20.0-44.0); MEAN CORPUSCULAR HGB CONC 32 g/dl (31.0-36.0); MEAN CORPUSCULAR VOLUME 92 fL (82-100); MONOCYTES % (AUTO) 11.6 % (2.0-12.0); NEUTROPHILS # (AUTO) 4.6 /CMM (1.8-8.9); NEUTROPHILS % (AUTO) 54.9 % (43.0-81.0); PLATELET COUNT (AUTO) 288 /CMM (150-450); RED BLOOD CELL COUNT(AUTO) 4.34 MIL/uL (4.0-5.2); WHITE BLOOD COUNT (AUTO) 8.4 K/uL (4.3-11.0)
[2020-03-09 08:57] LABS: CALCIUM, SERUM 9.4 mg/dL (8.5-10.1); MAGNESIUM 1.9 mg/dL (1.8-2.4); PHOSPHORUS 2.6 mg/dL (2.5-4.9); POTASSIUM 3.5 mmol/L (3.5-5.1)
[2020-03-09] MEDS: ONDANSETRON HCL/PF 4 MG/2 ML VIAL IVP PRN (13:47)
[2020-03-09 16:00] VITALS: BP 113/65
--- NOTE | 2020-03-09 18:30 | NUR ---
MS/RN Closing note Patient in bed confuse, pulled out IV site x 2 during day time. Does no c/o pain, skin is warm to touch, kept clean/dry, intact IV site. Respiratory even and unlabored in room air. Keep lower position of the bed with locked wheel and elevated HOB. Call light within reach, will endorse aircraft fueler.
--- NOTE | 2020-03-09 19:00 | NUR ---
RN medsurg opening notes Received Pt from morning nurse. Pt is alert and orientedX3 and easily forgetful. Pt is resting in bed comfortably. Respiration is normal in room air. No SOB. No S/S of distress noted. IV sites at R wrist# 22 is clean, intact, patent and SL. Safety precautions is maintained. Bed at low position, brakes locked, side rails upX2 and call light is within reach. Will continue to monitor.
[2020-03-09] MEDS: CEFTRIAXONE 1 G in IV D5W 50 ML IV SCH (19:47)
[2020-03-09 20:00] VITALS: BP 123/78
[2020-03-09 20:29] VITALS: BP_SYST 100; BP_SYST 123; BP_DIAS 70; BP_DIAS 78
[2020-03-10] MEDS: ONDANSETRON HCL/PF 4 MG/2 ML VIAL IVP PRN (00:05)
--- NOTE | 2020-03-10 01:05 | NUR ---
RN medsurg notes Pt is complaining of heartburn. Informed and notified [facility]. Received order from SHERIFFS OFFICER for Tums 500 mg/po/q6hr/PRN. Order carried out.
[2020-03-10] MEDS: CALCIUM CARBONATE 500 MG TAB.CHEW PO PRN (01:14)
--- NOTE | 2020-03-10 01:16 | NUR ---
RN medsurg notes Pt is complaining of heartburn. Administered tums 500 mg/po as ordered for heartburn. Will continue to monitor.
[2020-03-10] MEDS: BLOOD SUGAR DIAGNOSTIC 1 EACH STRIP IN SCH ×4 (06:47→22:30)
[2020-03-10] MEDS: INSULIN REGULAR, HUMAN 100 UNIT/ML 3 ML VIAL SQ PRN ×4 (06:51→22:32)
--- NOTE | 2020-03-10 07:30 | NUR ---
RN medsurg closing notes Pt is alert and orientedX3 and easily forgetful. Pt is sleeping in bed comfortably. Respiration is normal in room air. No SOB. No S/S of distress noted. Routine meds were given as ordered. IV sites at R wrist# 22 is clean, intact, patent and SL. Kept Pt clean, dry and comfortable. Safety precautions is maintained. Bed at low position, brakes locked, side rails upX2 and call light is within reach. Will endorse to morning nurse for SARAH.
[2020-03-10 08:00] VITALS: BP 126/70
[2020-03-10 08:33] LABS: BASOPHILS # (AUTO) 0.1 /CMM (0.0-0.2); EOSINOPHILS % (AUTO) 3.4 % (0.0-6.0); HEMATOCRIT 39 % (33-45); LYMPHOCYTES # (AUTO) 2.5 /CMM (0.8-4.8); MEAN CORPUSCULAR HGB CONC 33 g/dl (31.0-36.0); MEAN CORPUSCULAR VOLUME 92 fL (82-100); MONOCYTES % (AUTO) 10.5 % (2.0-12.0); NEUTROPHILS # (AUTO) 5.1 /CMM (1.8-8.9); NEUTROPHILS % (AUTO) 57.1 % (43.0-81.0); PLATELET COUNT (AUTO) 320 /CMM (150-450); RED BLOOD CELL COUNT(AUTO) 4.29 MIL/uL (4.0-5.2)
[2020-03-10 08:57] LABS: CALCIUM, SERUM 9.4 mg/dL (8.5-10.1); CREATININE 0.9 mg/dL (0.6-1.3); MAGNESIUM 1.6 mg/dL (1.8-2.4); PHOSPHORUS 2.6 mg/dL (2.5-4.9); POTASSIUM 3.7 mmol/L (3.5-5.1)
--- NOTE | 2020-03-10 08:57 | NUR ---
WOUND CARE CONSULT: PT PRESENTS WITH SACRAL SCAR, DRY ABRASIONS TO FEET AND VERY LONG TOENAILS, PRESENT ON ADMISSION. PT REQUESTING NAIL TRIM. DR MANLEY NOTIFIED OF DPM CONSULT REQUEST. PT STATES HAD PREVIOUS SACRAL WOUND.RECOMMENDATIONS MADE FOR SKIN PROTECTION. DISCUSSED WITH NURSING STAFF. WILL SEE PRN. APARICIO IN AGREEMENT WITH PLAN OF CARE.
[2020-03-10 16:00] VITALS: BP 138/98
[2020-03-10] MEDS: LORAZEPAM 1 MG TABLET PO PRN (16:34)
--- NOTE | 2020-03-10 19:10 | NUR ---
MS RN OPENING NOTES PATIENT AWAKE AND RESTING IN BED. A/OX3. ABLE TO VERBALIZE NEEDS. STABLE ON RA. DROPLET/CONTACT PRECAUTIONS IN PLACE FOR R/O COVID 19. IV PRESENT ON RIGHT WRIST, SIZE 22, INTACT & PATENT, HEP LOCKED. SAFETY MEASURES IN PLACE AND PATIENT'S NEEDS MET. BED LOCKED, ALARM ON, SIDE RAILS X2, CALL LIGHT WITHIN REACH. WILL CONTINUE TO MONITOR.
[2020-03-10] MEDS: CEFTRIAXONE 1 G in IV D5W 50 ML IV SCH (19:53)
[2020-03-10 20:00] VITALS: BP 140/47
[2020-03-10 20:07] VITALS: BP 122/56
[2020-03-11] MEDS: ONDANSETRON HCL/PF 4 MG/2 ML VIAL IVP PRN ×2 (01:59→15:25)
--- NOTE | 2020-03-11 01:59 | NUR ---
MS RN NOTES PATIENT COMPLAINT OF NAUSEA; ZOFRAN ADMINISTERED ORDERED; WILL CONTINUE TO MONITOR
[2020-03-11] MEDS ORDERED: PANTOPRAZOLE 40 MG VIAL IV ONE (03:00)
[2020-03-11] MEDS: INSULIN REGULAR, HUMAN 100 UNIT/ML 3 ML VIAL SQ PRN ×4 (06:28→21:02)
[2020-03-11] MEDS: BLOOD SUGAR DIAGNOSTIC 1 EACH STRIP IN SCH ×4 (06:35→21:00)
--- NOTE | 2020-03-11 07:48 | NUR ---
MS RN CLOSING NOTES PATIENT AWAKE IN BED. A/OX3. ABLE TO VERBALIZE NEEDS. STABLE ON RA. DROPLET/CONTACT PRECAUTIONS IN PLACE FOR R/O COVID 19. IV PRESENT ON RIGHT WRIST, SIZE 22, INTACT & PATENT, HEP LOCKED. SAFETY MEASURES IN PLACE AND PATIENT'S NEEDS MET. BED LOCKED, ALARM ON, SIDE RAILS X2, CALL LIGHT WITHIN REACH. WILL ENDORSE TO DAY SHIFT NURSE PLAN OF CARE.
--- NOTE | 2020-03-11 07:59 | NUR ---
MS RN OPENING NOTES RECEIVED PATIENT IN BED, AWAKE, A/O X2. PATIENT ON ROOM AIR; BREATHING IS EVEN AND UNLABORED; NO SOB PRESENT AT THIS TIME. NO COMPLAINS OF PAIN. R WRIST IV ACCESS GAUGE #22 PRESENT AND INTACT; FLUSHING WELL. SAFETY PRECAUTIONS IN PLACE; ISOLATION PRECAUTIONS UP FOR R/O COVID-19, BED IN LOW POSITION AND LOCKED, RAILS UP X2, CALL LIGHT WITHIN REACH. WILL CONTINUE TO MONITOR PATIENT.
[2020-03-11 08:00] VITALS: BP 136/80
[2020-03-11] MEDS ORDERED: CEPH-570 PO (10:51)
[2020-03-11] MEDS: LORAZEPAM 1 MG TABLET PO PRN ×2 (11:07→20:15)
--- NOTE | 2020-03-11 12:39 | NUR ---
MS RN NOTES 1200 ACCUCHECK PERFORMED AT 1220. BS WAS 420. DID A REPEAT TEST; BS 421. PER PROTOCOL ADMINISTERED 10 UNITS OF INSULIN AND CALLED MD. MD WASN'T PRESENT. LEFT MESSAGE WITH UTILITY WORKER [employer]. NOTIFIED CHARGE NURSE. WILL CONTINUE TO MONITOR PATIENT.
[2020-03-11] MEDS: glyBURIDE 5 MG TABLET PO SCH (14:21)
[2020-03-11 16:00] VITALS: BP 128/70
[2020-03-11] MEDS: CALCIUM CARBONATE 500 MG TAB.CHEW PO PRN (18:27)
--- NOTE | 2020-03-11 18:48 | NUR ---
MS RN CLOSING NOTES PATIENT IN BED, AWAKE, A/O X3. PATIENT ON ROOM AIR; BREATHING IS EVEN AND UNLABORED; NO SOB PRESENT AT THIS TIME. NO COMPLAINS OF PAIN. PATIENT HAD SOME STOMACH DISCOMFORT AND WAS GIVEN PRN MEDICATION FOR STOMACH UPSET. PATIENT VERY NEEDY AND DISTRACTING THROUGHOUT THE DAY. R WRIST IV ACCESS GAUGE #22 PRESENT AND INTACT; INFUSING NS AT 100 MLS/HR. DURING THE DAY PATIENT PREFERRED TO DRINK MORE AND DISCONNECT HER IV. SAFETY PRECAUTIONS IN PLACE; ISOLATION PRECAUTIONS UP FOR R/O COVID-19, BED IN LOW POSITION AND LOCKED, RAILS UP X2, CALL LIGHT WITHIN REACH. WILL ENDORSE TO FREEZER TUNNEL OPERATOR NURSE.
[2020-03-11] MEDS: CEFTRIAXONE 1 G in IV D5W 50 ML IV SCH (19:52)
[2020-03-11 20:07] VITALS: BP 97/65
--- NOTE | 2020-03-11 20:15 | NUR ---
MS RN NOTES PT ANXIOUS, AGITATED & RESTLESS. ATIVAN GIVEN ORDERED. WILL CONTINUE TO MONITOR.
[2020-03-11] MEDS: ZOLPIDEM TARTRATE 5 MG TABLET PO PRN (20:58)
[2020-03-12] MEDS: LORAZEPAM 1 MG TABLET PO PRN (02:14)
--- NOTE | 2020-03-12 02:14 | NUR ---
MS RN NOTES PT ANXIOUS, AGITATED, RESTLESS & SCREAMS AT TIMES . ATIVAN GIVEN ORDERED. WILL CONTINUE TO MONITOR.
[2020-03-12] MEDS: ONDANSETRON HCL/PF 4 MG/2 ML VIAL IVP PRN (02:16)
[2020-03-12] MEDS: BLOOD SUGAR DIAGNOSTIC 1 EACH STRIP IN SCH ×2 (06:23→11:47)
[2020-03-12] MEDS: INSULIN REGULAR, HUMAN 100 UNIT/ML 3 ML VIAL SQ PRN (06:31)
--- NOTE | 2020-03-12 06:37 | NUR ---
MS RN NOTES AWAKE & RESPONSIVE. NOT IN ANY DISTRESS. NO SOB NOTED. DENIES ANY PAIN OR DISCOMFORT AT THIS TIME. AM CARE DONE. MONITORED ACCORDINGLY. CALL LIGHT WITHIN REACH. BED IN LOWEST POSITION. SR UP X3 WITH BED ALARM ON FOR SAFETY. WILL ENDORSE TO NEXT SHIFT.
[2020-03-12 08:00] VITALS: BP 107/66
--- NOTE | 2020-03-12 08:15 | NUR ---
MS/RN - Assessment Patient is awake, A/O x 2-3, forgetful, reality orientation given, anxious, remain afebrile, stable on room air, saturating well, no SOB/respiratory distress, denies pain. Saline lock on the right wrist is patent, intact, with no signs of infiltration. Skin assessment done, will do wound care as ordered. Patient is ambulatory with assist. Contact and droplet precautions maintained for r/o Covid-19. Will continue with current plan of care.
[2020-03-12] MEDS: glyBURIDE 5 MG TABLET PO SCH (08:39)
--- NOTE | 2020-03-12 11:30 | NUR ---
MS/RN - MD order Patient is negative for Covid-19, okay to discharge home with home health today.
[2020-03-12] MEDS ORDERED: LINAGLIPTIN 5 MG TABLET PO SCH (13:00)
--- NOTE | 2020-03-12 15:00 | NUR ---
MS/RN - Discharge Patient alert and oriented, discharged home with home health in stable condition, remain afebrile, denies pain, not in any form of distress, ambulatory with assist. Reviewed discharge instructions with patient and she verbalized understanding of all teachings including medications and follow-up care with PCP within 1 week. Patient was advised to seek immediate medical attention for worsening symptoms, chest pain, shortness of breath, palpitations, abdominal pain/distention, intractable nausea and vomiting, diarrhea, hematochezia, melena, weakness, loss of consciousness, neurological deficit, or any other emergent concerns. All belongings with patient and she deny any missing items. Patient refused photos to be taken of skin. Saline lock removed on the right wrist with catheter tip intact, no redness, no swelling noted at the site. Discharge paperwork signed and copies were given per protocol. Accompanied to the lobby via wheelchair and transported by private car by grace. Patient left the unit at 14:50.
--- NOTE | 2020-03-12 15:26 | NUR ---
SW called the pts roommate, Vitor ([phone]), and the phone went straight to voicemail.
--- NOTE | 2020-03-12 15:27 | NUR ---
SW called the pts neighbor and friend, Kris Castro ([phone]), and informed him that the pts roommate's number was given as a contact number to reach the pt once she is discharged for home health services.
== END 2020-03-12 14:50 | disposition home health service (06) | DRG 689 ==
LOC: ER 17:02 → TELE 21:27 → MED 03-08 22:48
PROVIDERS: ADMIT Nurse Practitioner Acute Care; ATTEND Internal Medicine
DX: N39.0 Urinary tract infection, site not specified (principal); N17.0 Acute kidney failure with tubular necrosis; E87.1 Hypo-osmolality and hyponatremia; M06.9 Rheumatoid arthritis, unspecified; E87.6 Hypokalemia; M79.7 Fibromyalgia; G30.9 Alzheimer's disease, unspecified; J45.909 Unspecified asthma, uncomplicated; R29.6 Repeated falls; B96.20 Unspecified Escherichia coli [E. coli] as the cause of diseases classified elsewhere; F02.80 Dementia in other diseases classified elsewhere, unspecified severity, without behavioral disturbance, psychotic disturbance, mood disturbance, and anxiety; G89.29 Other chronic pain; Z79.4 Long term (current) use of insulin; Z79.899 Other long term (current) drug therapy; Z79.51 Long term (current) use of inhaled steroids; Z79.84 Long term (current) use of oral hypoglycemic drugs; E86.9 Volume depletion, unspecified; F31.9 Bipolar disorder, unspecified; E78.5 Hyperlipidemia, unspecified; F41.9 Anxiety disorder, unspecified; Z96.649 Presence of unspecified artificial hip joint; Z87.891 Personal history of nicotine dependence; Z82.49 Family history of ischemic heart disease and other diseases of the circulatory system; T50.2X5A Adverse effect of carbonic-anhydrase inhibitors, benzothiadiazides and other diuretics, initial encounter; Y92.009 Unspecified place in unspecified non-institutional (private) residence as the place of occurrence of the external cause; E83.42 Hypomagnesemia; E86.1 Hypovolemia; I10 Essential (primary) hypertension; L60.3 Nail dystrophy; M62.562 Muscle wasting and atrophy, not elsewhere classified, left lower leg; M62.561 Muscle wasting and atrophy, not elsewhere classified, right lower leg; S90.511A Abrasion, right ankle, initial encounter; S90.415A Abrasion, left lesser toe(s), initial encounter; X58.XXXA Exposure to other specified factors, initial encounter; Y92.9 Unspecified place or not applicable; E11.65 Type 2 diabetes mellitus with hyperglycemia; J84.10 Pulmonary fibrosis, unspecified
CPT/HCPCS: 36415; 71045-TC; 80048-TC; 80061-TC; 81000-TC; 82962-TC; 83735-TC; 84100-TC; 85025-TC; 87081-TC; 87086-TC; 87186-TC; 97110-TC; 97116-TC; 97530-TC; C9113; G0378; J0696; J1815; J2405; J3475; J3480; J7030; J7040; J7050; J7060